=== PATIENT | female | born 1955 | race Caucasian/White ===

== ENCOUNTER 2016-06-22 11:04 | Day surgery (SDC) | payer BC, MEDICAID, MEDICARE, OTHER ==
[2016-06-22] MEDS ORDERED: HYDROmorphone 1 MG/ML Syringe IM ONE (12:24)
--- NOTE | 2016-06-22 12:27 | EDM.PDOC ---
ED HPI Trauma - General Chief Complaint: Upper Extremity Injury/Pain Stated Complaint: BROKE WRIST Time Seen by Provider: 06/22/16 12:21 Source: Reports: Patient, RN notes reviewed History Limitations: Reports: No limitations - History of Present Illness INITIAL COMMENTS - FREE TEXT/NARRATIVE: 60-year-old female fall on outstretched hand left outside today has deformity in excruciating pain Allergies/ADRs: Allergies peanut Allergy (Verified 06/22/16 12:03) Other Penicillins Allergy (Verified 06/22/16 12:03) Difficulty Breathing Home Medications: Ambulatory Orders Celecoxib [CeleBREX] 200 mg PO BID 07/22/15 [Confirmed 06/22/16] Docusate Sodium [Colace] 200 mg PO BID 07/22/15 [Confirmed 06/22/16] Estradiol [Climara] 1 applic TOP WEEKLY 07/22/15 [Confirmed 06/22/16] Levothyroxine Sodium 50 mcg PO DAILY 07/22/15 [Confirmed 06/22/16] Minocycline [Minocin] 100 mg TOP ASDIRECTED PRN 07/22/15 [Confirmed 06/22/16] Omeprazole [Prilosec] 20 mg PO DAILY 07/22/15 [Confirmed 06/22/16] Sennosides [Senna] 2 tab PO BID 07/22/15 [Confirmed 06/22/16] fentaNYL [Fentanyl] 25 mcg TOP ASDIRECTED 07/22/15 [Confirmed 06/22/16] Betamethasone Dipropionate [Diprosone 0.05% Lotion] 1 applic TOP BID PRN [Confirmed 06/22/16] Cholecalciferol (Vitamin D3) [Vitamin D3] 1,000 units PO DAILY 02/02/16 [ Confirmed 06/22/16] Clindamycin HCl [Cleocin] 600 mg PO ASDIRECTED PRN 02/02/16 [Confirmed 06/22/16] Clobetasol [Clobetasol Propionate 0.05%] 1 applic TOP BID 02/02/16 [Confirmed ] Cyanocobalamin (Vitamin B-12) [Vitamin B-12] 1 ml IM ASDIRECTED 02/02/16 [ Confirmed 06/22/16] Cyanocobalamin (Vitamin B-12) [Vitamin B-12] 1,000 mcg SL BID 02/02/16 [ Confirmed 06/22/16] Cyclobenzaprine [Flexeril] 10 mg PO TID PRN 02/02/16 [Confirmed 06/22/16] Fluticasone Propionate [Flonase Allergy Relief] 2 spray NS DAILY PRN 02/02/16 [ Confirmed 06/22/16] Folic Acid 1 mg PO ASDIRECTED 02/02/16 [Confirmed 06/22/16] Hydroquinone 1 applic TOP BID 02/02/16 [Confirmed 06/22/16] Hyoscyamine [Hyomax-SL] 0.125 mg SL Q4H PRN 02/02/16 [Confirmed 06/22/16] Iron,Carbonyl/Ascorbic Acid [Vitron-C Tablet] 1 tab PO DAILY 02/02/16 [ Confirmed 06/22/16] Magnesium Hydroxide [Milk of Magnesia] 400 mg PO DAILY PRN 02/02/16 [Confirmed 06/22/16] Methotrexate 5 mg PO ASDIRECTED 02/02/16 [Confirmed 06/22/16] Multivitamins with Iron [Chewable-Pascual with Iron] 1 tab PO DAILY 02/02/16 [ Confirmed 06/22/16] PARoxetine [Paxil] 10 mg PO DAILY 02/02/16 [Confirmed 06/22/16] Polyethylene Glycol 3350 [MiraLAX] 17 gm PO DAILY PRN 02/02/16 [Confirmed ] Polymyxin B Sulf/Trimethoprim [Polytrim Eye Drops] 1 - 2 drop OP Q4H 02/02/16 [ Confirmed 06/22/16] Ranitidine [Zantac] 150 mg PO DAILY PRN 02/02/16 [Confirmed 06/22/16] Zolpidem Tartrate [Ambien] 5 mg PO BEDTIME PRN 02/02/16 [Confirmed 06/22/16] Past Medical History HEENT History: Reports: Allergic rhinitis, Impaired vision, Sinusitis Respiratory History: Reports: Bronchitis, recurrent Gastrointestinal History: Reports: Bowel obstruction, Chronic constipation, GERD CLASSIFIER History: Reports: Dysfunctional uterine bleeding, , Spontaneous Musculoskeletal History: Reports: Arthritis, Fracture, Fibromyalgia, Osteoarthritis Psychiatric History: Reports: Anxiety, Depression, Panic attack Endocrine/Metabolic History: Reports: Hypothyroidism Hematologic History: Reports: B12 deficiency Dermatologic History: Reports: Psoriasis - Infectious Disease History Infectious Disease History: Reports: Chicken pox, Measles, Mumps - Past Surgical History HEENT Surgical History: Reports: Eye surgery, Oral surgery, Tonsillectomy Other HEENT Surgeries/Procedures: 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 Cardiovascular Surgical History: Reports: None Respiratory Surgical History: Reports: None GI Surgical History: Reports: Appendectomy, Bariatric procedure, Colonoscopy, Hernia, abdominal, Hernia repair/other Female Surgical History: Reports: Breast biopsy, section, D&C, Hysterectomy, Salpingo-oophorectomy Endocrine Surgical History: Reports: None Musculoskeletal Surgical History: Reports: Arthroscopic knee, Carpal tunnel, Shoulder replacement, Other (see below) Other Musculoskeletal Surgeries/Procedures:: bilat foot surgery Dermatological Surgical History: Reports: None Social & Family History - Family History HEENT: Reports: Allergic rhinitis, Cataract, Glaucoma, Hearing impairment, Impaired vision, Macular degeneration Cardiac: Reports: Heart failure, Hypertension, [place] Respiratory: Reports: None GI: Reports: GERD, Hiatal hernia : Reports: Other (see below) Other Family History: urinary incontinence OBGYN: Reports: None Musculoskeletal: Reports: Arthritis, Osteoarthritis, RA Neurological: Reports: CVA Psychiatric: Reports: None Endocrine/Metabolic: Reports: None Hematologic: Reports: None Immunologic: Reports: None Dermatologic: Reports: None Oncologic: Reports: None - Tobacco Use Smoking Status *Q: Never Smoker Years of Tobacco use: 13 Packs/Tins Daily: 1 Used Tobacco, but Quit: Yes Month Tobacco Last Used: 02/1988 Second Hand Smoke Exposure: No - Caffeine Use Caffeine Use: Reports: Coffee, Tea - Alcohol Use Days Per Week of Alcohol Use: 0 Number of Drinks Per Day: 2 Total Drinks Per Week: 0 - Recreational Drug Use Recreational Drug Use: No Review of Systems - Review of Systems Review Of Systems: See Below Constitutional: Reports: no symptoms Respiratory: Reports: no symptoms Cardiovascular: Reports: no symptoms Musculoskeletal: Reports: joint pain (left wrist) Trauma Exam - Physical Exam Exam: See Below Text/Narrative:: examination left wrist does have deformity which is appreciated she is exquisitely tender to the touch over the left wrist she has full range of motion of all digits radial pulses difficult to appreciate secondary to edema Course - Vital Signs Last Recorded V/S: Last Vital Signs Temp 98.1 F 06/22/16 11:55 Pulse 83 06/22/16 11:55 Resp 18 02/28/17 11:55 BP 162/65 H 06/22/16 11:55 Pulse Ox 95 06/22/16 11:55 - Orders/Labs/Meds Orders: Active Orders 24 hr Category Date Time Status EKG Documentation Completion [RC] ASDIRECTED Care 06/22/16 12:32 Inactive UA W/O MICROSCOPIC [URIN] Stat Lab 06/22/16 12:33 Uncollected EKG 12 Lead [EK] Routine Ther 06/22/16 12:32 Stop Req Labs: Laboratory Tests 06/22/16 06/22/16 Range/Units 12:50 12:50 WBC 6.0 (4.5-11.0) K/uL RBC 4.30 (3.30-5.50) M/uL Hgb 13.9 (12.0-15.0) g/dL Hct 42.3 (36.0-48.0) % MCV 98 (80-98) fL MCH 32 H (27-31) pg MCHC 33 (32-36) % Plt Count 181 (150-400) K/uL Sodium 140 (140-148) mmol/L Potassium 3.8 (3.6-5.2) mmol/L Chloride 104 (100-108) mmol/L Carbon Dioxide 25 (21-32) mmol/L Anion Gap 10.6 (5.0-14.0) mmol/L BUN 10 (7-18) mg/dL Creatinine 0.7 (0.6-1.0) mg/dL Est Cr Clr Drug Dosing 80.82 mL/min Estimated GFR (MDRD) > 60 (>60) Glucose 110 H (74-106) mg/dL Calcium 8.4 L (8.5-10.1) mg/dL Meds: Medications Discontinued Medications Generic Name Dose Route Start Last Admin Trade Name Freq PRN Reason Stop Dose Admin Hydromorphone HCl 1 mg 06/22/16 12:24 06/22/16 12:29 Dilaudid IM 06/22/16 12:25 1 mg ONETIME ONE Administration Departure - Departure Time of Disposition: 13:17 Disposition: Admitted As Inpatient 64 Condition: good Clinical Impression: Radius distal fracture Qualifiers: Encounter type: initial encounter Fracture type: closed Fracture morphology: other fracture Laterality: left Qualified Code(s): S52.592A - Other fractures of lower end of left radius, initial encounter for closed fracture Fracture of styloid process of left ulna Qualifiers: Encounter type: initial encounter Fracture type: closed Fracture alignment: displaced Qualified Code(s): S52.612A - Displaced fracture of left ulna styloid process, initial encounter for closed fracture Forms: ED Department Discharge - Assessment/Plan Plan: Assessment Acuity = acute Site and laterality = distal radius fracture left closed, distal ulnar styloid fracture left closed Etiology = secondary to fall on outstretched hand Manifestations = pain Location of injury = home Lab values = x-ray describes a fracture above Plan consult with orthopedics they evaluated the patient in the emergency department plan is open reduction internal fixation . This note was dictated using [employer] voice recognition software please call with any questions.
--- NOTE | 2016-06-22 12:50 | CR ---
Wrist Comp Min 3V Lt HISTORY: Fall COMPARISON: None FINDINGS: Moderately compacted fracture of the radial metaphysis with mild ventral angulation. Ulnar styloid fracture. The fracture involves the radiocarpal joint at the more lateral aspect of the rad ius. Diffuse bone demineralization. Carpal bones appear intact.
--- NOTE | 2016-06-22 12:51 | CR ---
Chest 2V HISTORY: Fall COMPARISON: 11/20/2007 FINDINGS: Cardiac size and pulmonary vessels normal. Lungs are clear. Old right-sided rib fracture. No effusion. Impression: No acute pulmonary disease.
[2016-06-22] MEDS ORDERED: Lactated Ringers 1,000 ML IV SCH (14:00)
[2016-06-22] MEDS ORDERED: Neostigmine Methylsulfate 1 MG/ML 5 ML Syringe ONE (15:53)
[2016-06-22] MEDS ORDERED: Propofol 200 MG/20 ML SDV ONE (15:53)
[2016-06-22] MEDS ORDERED: Rocuronium 50 MG/5 ML Vial ONE (15:53)
[2016-06-22] MEDS ORDERED: Dexamethasone 4 MG/ML SDV ONE (15:53)
[2016-06-22] MEDS ORDERED: Ondansetron 4 MG/2 ML SDV ONE (15:53)
[2016-06-22] MEDS ORDERED: fentaNYL 250 MCG/5 ML SDV ONE ×3 (15:53→17:01)
[2016-06-22] MEDS ORDERED: Bupivacaine 0.5%/EPINEPHrine 1:200,000 50 ML MDV INJECT ONE (17:14)
[2016-06-22] MEDS ORDERED: traMADol 50 MG Tab PO PRN (17:31)
[2016-06-22] MEDS ORDERED: Bisacodyl 5 MG Tab PO PRN (17:31)
[2016-06-22] MEDS ORDERED: Naloxone 0.4 MG/ML SDV IVPUSH PRN (17:31)
[2016-06-22] MEDS ORDERED: Zolpidem 5 MG Tab PO PRN (17:31)
[2016-06-22] MEDS ORDERED: diphenhydrAMINE 50 MG/ML SDV IVPUSH PRN (17:31)
[2016-06-22] MEDS ORDERED: Ketorolac 30 MG/ML SDV IVPUSH PRN (17:31)
[2016-06-22] MEDS ORDERED: Ondansetron 4 MG/2 ML SDV IVPUSH PRN (17:31)
[2016-06-22] MEDS ORDERED: Aluminum Hydroxide/Magnesium Hydroxide/Simethicone Susp 30 ML Cup PO PRN (17:31)
[2016-06-22] MEDS ORDERED: Morphine 2 MG/ML Syringe IVPUSH PRN (17:31)
[2016-06-22] MEDS ORDERED: Magnesium Hydroxide 400 MG/5 ML Susp 30 ML Cup PO PRN (17:31)
[2016-06-22] MEDS: Acetaminophen/oxyCODONE 325-5 MG Tab PO PRN (21:36)
[2016-06-22] MEDS ORDERED: Sennosides 8.6 MG Tab ONE (21:47)
[2016-06-22] MEDS: Docusate Sodium 100 MG Cap PO PRN (21:48)
[2016-06-22] MEDS: Sennosides 8.6 MG Tab PO PRN (21:48)
--- NOTE | 2016-06-23 00:32 | OR ---
DATE OF PROCEDURE: 06/22/2016 PREOPERATIVE DIAGNOSIS: Left distal radius fracture, closed. POSTOPERATIVE DIAGNOSIS: Left distal radius fracture, closed. PROCEDURE: Open reduction internal fixation, left distal radius. FURNACE REPAIR MECHANIC: Nakita Turner NP. ANESTHESIA: Laryngeal mask airway general anesthesia. FLUID: Lactated Ringer solution. ESTIMATED BLOOD LOSS: 50 mL. COMPLICATIONS: None. SPECIMEN: None. DISCHARGE DISPOSITION: Stable to PACU. INSTRUMENTATION: [employer] set. INDICATION FOR THE PROCEDURE: The patient came to the emergency department late this morning after falling while going up the steps in her house. She was found to have a left distal radius fracture. After plain films have been taken, this risks and benefits of the procedure were explained to the patient. Informed consent was obtained. Preoperative imaging confirmed the above-mentioned diagnosis. DETAILS OF PROCEDURE: The patient was seen preoperatively by myself and the anesthesia staff in the preoperative holding area where the operative site was marked. She was brought to the operative suite by the anesthesia staff where general anesthesia was administered. A well-padded tourniquet was placed on the left upper extremity. Left upper extremity was then prepped and draped in a sterile manner. Time-out was called identifying the correct patient, correct procedure, the correct site, and antibiotics were begun with appropriate period of time. The left upper extremity was then exsanguinated, tourniquet was raised to 250 mmHg for 32 minutes and let down and was taken down prior to closure. The wrist was reduced and confirmed on fluoroscopy. An incision was made from the carpus proximally approximately 10 cm along the distal radius and carried down over the flexor carpi radialis tendon. The tendon was retracted laterally and then the incision went through the deep fascia of the flexor carpi radialis. A Weitlaner retractor was used for traction, the distal radius was exposed. Using a [place] as well as some irrigation of the fracture site and an elevator, I then applied a narrow plate and adjusted this few times using fluoroscopy. The fluoroscopy unit happened to be was sterilely draped. Once this was in good position, I placed the styloid wire confirming good position. I then drilled another hole in the proximal large hole of the plate and inserted the screw to hold it in position. I then drilled through the locking guides and then placed partially threaded screws. For the styloid screw, I placed a smooth pin. I then drilled my proximal most hole and then placed a screw. I then confirmed good reduction on AP and lateral radiographs. I then let down the tourniquet. We copiously irrigated with saline. There was extensive bleeding subcutaneously. I took a great deal of time to cauterize the small bleeders. No major vessel had been violated. I then put in multiple 2-0 Vicryl interrupted sutures, followed by 3-0 nylon horizontal mattress sutures. A sterile dressing was then placed as well as a volar splint. The patient was allowed to awaken from general anesthesia and taken to PACU in stable condition. Jose Braga DO /[id number]
[2016-06-23] MEDS: Acetaminophen/oxyCODONE 325-5 MG Tab PO PRN ×2 (05:13→10:28)
[2016-06-23] MEDS ORDERED: Aspirin 325 MG Tab.EC PO SCH (09:00)
[2016-06-23] MEDS ORDERED: Sodium Chloride 0.9% 10 ML Syringe FLUSH SCH (09:00)
[2016-06-23] MEDS: Docusate Sodium 100 MG Cap PO PRN (09:42)
[2016-06-23] MEDS: Sennosides 8.6 MG Tab PO PRN (09:43)
--- NOTE | 2016-06-23 09:47 | PCM.DCSUM1 ---
Discharge Summary - Hospital Course Free Text/Narrative:: Kelin is a 60 year old female who had a distal radius repair. She is slightly dizzy but otherwise is doing well. Her pain is under control. She states that she lives by herself and PT is working with her. - Discharge Data Discharge Date: 06/23/16 Discharge Disposition: Home, Self-Care 01 Condition: Stable - Patient Summary/Data Operative Procedure(s) Performed: ORIF distal radius Consults: Consultations 06/22/16 17:35 Consult to Physician [CONS] Routine Consulting Provider: Mario Castro Call Completed to Consulting Physician: Yes - Patient Instructions Diet: Usual Diet as Tolerated Activity: Apply Ice, As Tolerated, Cough & Deep Breathe, Elevate Extremity Showering/Bathing: May Shower Wound/Incision Care: Keep Operative Site/Wound Site Clean and Dry Notify Provider of: Fever, Increased Pain, Swelling and Redness, Drainage - Discharge Plan Home Medications: Home Meds Celecoxib [CeleBREX] 200 mg PO BID 07/22/15 [History] Docusate Sodium [Colace] 200 mg PO BID 07/22/15 [History] Estradiol [Climara] 1 applic TOP WEEKLY 07/22/15 [History] Levothyroxine Sodium 50 mcg PO DAILY 07/22/15 [History] Minocycline [Minocin] 100 mg TOP ASDIRECTED PRN 07/22/15 [History] Omeprazole [Prilosec] 20 mg PO DAILY 07/22/15 [History] Sennosides [Senna] 2 tab PO BID 07/22/15 [History] fentaNYL [Fentanyl] 25 mcg TOP ASDIRECTED 07/22/15 [History] Betamethasone Dipropionate [Diprosone 0.05% Lotion] 1 applic TOP BID PRN [History] Cholecalciferol (Vitamin D3) [Vitamin D3] 1,000 units PO DAILY 02/02/16 [History ] Clindamycin HCl [Cleocin] 600 mg PO ASDIRECTED PRN 02/02/16 [History] Clobetasol [Clobetasol Propionate 0.05%] 1 applic TOP BID 02/02/16 [History] Cyanocobalamin (Vitamin B-12) [Vitamin B-12] 1 ml IM ASDIRECTED 02/02/16 [ History] Cyanocobalamin (Vitamin B-12) [Vitamin B-12] 1,000 mcg SL BID 02/02/16 [History] Cyclobenzaprine [Flexeril] 10 mg PO TID PRN 02/02/16 [History] Fluticasone Propionate [Flonase Allergy Relief] 2 spray NS DAILY PRN 02/02/16 [ History] Folic Acid 1 mg PO ASDIRECTED 02/02/16 [History] Hydroquinone 1 applic TOP BID 02/02/16 [History] Hyoscyamine [Hyomax-SL] 0.125 mg SL Q4H PRN 02/02/16 [History] Iron,Carbonyl/Ascorbic Acid [Vitron-C Tablet] 1 tab PO DAILY 02/02/16 [History] Magnesium Hydroxide [Milk of Magnesia] 400 mg PO DAILY PRN 02/02/16 [History] Methotrexate 5 mg PO ASDIRECTED PRN 02/02/16 [History] Multivitamins with Iron [Chewable-Pascual with Iron] 1 tab PO DAILY 02/02/16 [ History] PARoxetine [Paxil] 10 mg PO DAILY PRN 02/02/16 [History] Polyethylene Glycol 3350 [MiraLAX] 17 gm PO DAILY PRN 02/02/16 [History] Polymyxin B Sulf/Trimethoprim [Polytrim Eye Drops] 1 - 2 drop OP Q4H 02/02/16 [ History] Ranitidine [Zantac] 150 mg PO DAILY PRN 02/02/16 [History] Zolpidem Tartrate [Ambien] 5 mg PO BEDTIME PRN 02/02/16 [History] Forms: ED Department Discharge Referrals: Lan Mejias MD [Primary Care Provider] - Jose Braga DO [Physician] - (2 weeks recheck with ortho. ) - Discharge Summary/Plan Comment Discharge Summary/Plan Comment: At this time we will discharge her. She notes that her ride will not be available till 4 pm. We will recommend that she continue on her pain medication as prescribed before. She will continue with her stool softeners. - General Info Admission Dx/Problem (Free Text: Kelin is a 60 year old female patient who is POD 1 from a ORIF of the distal radius. She is doing well. She notes some dizziness but is otherwise well. She notes that her pain is controlled. Functional Status: Reports: pain controlled, tolerating diet, ambulating, urinating - Review of Systems General: Reports: no symptoms Musculoskeletal: Reports: joint pain Skin: Reports: no symptoms Neurological: Reports: no symptoms Psychiatric: Reports: no symptoms - Patient Data Vitals - Most Recent: Last Vital Signs Temp 36.5 C 06/23/16 08:28 Pulse 103 H 06/23/16 08:28 Resp 16 06/23/16 08:28 BP 139/86 06/23/16 08:28 Pulse Ox 95 06/23/16 08:28 Weight - Most Recent: 176 lb 2.389 oz I&O - Last 24 hours: Intake & Output 06/22/16 06/23/16 06/23/16 22:59 06:59 14:59 Intake Total 850 767 600 Balance 850 767 600 Lab Results - Last 24 hrs: Laboratory Results - last 24 hr 06/23/16 06/23/16 Range/Units 05:40 05:40 WBC 6.5 (4.5-11.0) K/uL RBC 3.68 (3.30-5.50) M/uL Hgb 12.0 (12.0-15.0) g/dL Hct 36.3 (36.0-48.0) % MCV 99 H (80-98) fL MCH 33 H (27-31) pg MCHC 33 (32-36) % Plt Count 168 (150-400) K/uL Neut % (Auto) 71 H (36-66) % Lymph % (Auto) 19 L (24-44) % Trigg % (Auto) 9 H (2-6) % Eos % (Auto) 1 L (2-4) % Baso % (Auto) 0 (0-1) % Sodium 139 L (140-148) mmol/L Potassium 3.9 (3.6-5.2) mmol/L Chloride 105 (100-108) mmol/L Carbon Dioxide 27 (21-32) mmol/L Anion Gap 10.9 (5.0-14.0) mmol/L BUN 10 (7-18) mg/dL Creatinine 0.5 L (0.6-1.0) mg/dL Est Cr Clr Drug Dosing 113.15 mL/min Estimated GFR (MDRD) > 60 (>60) Glucose 91 (74-106) mg/dL Calcium 7.9 L (8.5-10.1) mg/dL Total Bilirubin 0.6 (0.2-1.0) mg/dL AST 17 (15-37) U/L ALT 20 (12-78) U/L Alkaline Phosphatase 54 (46-116) U/L Total Protein 5.9 L (6.4-8.2) g/dL Albumin 3.1 L (3.4-5.0) g/dL Globulin 2.8 (2.3-3.5) g/dL Albumin/Globulin Ratio 1.1 L (1.2-2.2) Med Orders - Current: Current Medications Al Hydroxide/Mg Hydroxide (Mag-Al Plus) 30 ml PO Q4H PRN PRN Reason: Constipation Aspirin (Ecotrin) 325 mg PO BID LORENZA Bisacodyl (Dulcolax) 10 mg PO DAILY PRN PRN Reason: Constipation Diazepam (Valium) 5 mg IVPUSH Q6H PRN PRN Reason: Spasms Diphenhydramine HCl (Benadryl) 25 mg IVPUSH Q4H PRN PRN Reason: Itching Docusate Sodium (Colace) 100 mg PO BID PRN PRN Reason: Constipation Last Admin: 06/22/16 21:48 Dose: 100 mg Lactated Ringer's (Ringers, Lactated) 1,000 mls @ 0 mls/hr IV ASDIRECTED [facility] PRN Reason: KVO Ketorolac Tromethamine (Toradol) 30 mg IVPUSH Q8H PRN PRN Reason: Pain Stop: 06/27/16 17:31 Last Admin: 06/22/16 19:04 Dose: 30 mg Magnesium Hydroxide (Milk Of Magnesia) 30 ml PO BID PRN PRN Reason: Constipation Last Admin: 06/22/16 21:36 Dose: 30 ml Morphine Sulfate (Morphine) 2 mg IVPUSH Q2H PRN PRN Reason: Pain Naloxone HCl (Narcan) 0.1 mg IVPUSH ASDIRECTED PRN PRN Reason: Oversedation Stop: 06/23/16 17:32 Ondansetron HCl (Zofran) 8 mg IVPUSH Q4H PRN PRN Reason: Nausea/Vomiting Oxycodone/Acetaminophen (Percocet 325-5 Mg) 2 tab PO Q4H PRN PRN Reason: Pain Last Admin: 06/23/16 05:13 Dose: 2 tab Senna (Senna) 8.6 mg PO BID PRN PRN Reason: Constipation Last Admin: 06/22/16 21:48 Dose: 8.6 mg Sodium Chloride (Saline Flush) 10 ml FLUSH DAILY LORENZA Tramadol HCl (Ultram) 100 mg PO Q6H PRN PRN Reason: Pain Last Admin: 06/23/16 01:11 Dose: 100 mg Zolpidem Tartrate (Ambien) 5 mg PO BEDTIME PRN PRN Reason: Sleep Discontinued Medications Bupivacaine HCl/Epinephrine Bitart (Marcaine 0.5%/Epinephrine 1:200,000) 10 ml INJECT .STK-MED ONE Stop: 06/22/16 17:15 Last Admin: 06/22/16 17:14 Dose: 10 ml Dexamethasone (Dexamethasone) Confirm Administered Dose 4 mg .ROUTE .STK-MED ONE Stop: 06/22/16 15:54 Fentanyl (Sublimaze) Confirm Administered Dose 250 mcg .ROUTE .STK-MED ONE Stop: 06/22/16 15:54 Fentanyl (Sublimaze) Confirm Administered Dose 250 mcg .ROUTE .STK-MED ONE Stop: 06/22/16 16:20 Fentanyl (Sublimaze) Confirm Administered Dose 250 mcg .ROUTE .STK-MED ONE Stop: 06/22/16 17:02 Glycopyrrolate () Confirm Administered Dose 1 mg .ROUTE .STK-MED ONE Stop: 06/22/16 15:54 Hydromorphone HCl (Dilaudid) 1 mg IM ONETIME ONE Stop: 06/22/16 12:25 Last Admin: 06/22/16 12:29 Dose: 1 mg Clindamycin Phosphate 600 mg/ (Sodium Chloride) 54 mls @ 100 mls/hr IV ONETIME ONE Stop: 06/22/16 16:02 Last Admin: 06/22/16 14:34 Dose: 100 mls/hr Neostigmine Methylsulfate (Neostigmine) Confirm Administered Dose 5 mg .ROUTE .STK-MED ONE Stop: 06/22/16 15:54 Ondansetron HCl (Zofran) Confirm Administered Dose 4 mg .ROUTE .STK-MED ONE Stop: 06/22/16 15:54 Propofol (Diprivan 20 Ml) Confirm Administered Dose 200 mg .ROUTE .STK-MED ONE Stop: 06/22/16 15:54 Rocuronium [place] (Zemuron) Confirm Administered Dose 50 mg .ROUTE .STK-MED ONE Stop: 06/22/16 15:54 Senna (Senna) Confirm Administered Dose 8.6 mg .ROUTE .STK-MED ONE Stop: 06/22/16 21:48 Last Admin: 06/22/16 23:17 Dose: Not Given - Exam General: Reports: alert, oriented Neck: Reports: supple Extremities: Reports: no edema Skin: Reports: warm, dry, intact Wound/Incisions: Reports: healing well, dressing dry and intact, no drainage, erythema Neurological: Reports: no new focal deficit Psy/Mental Status: Reports: alert, normal affect *Q Meaningful Use (DIS) - VTE *Q VTE Criteria *Q: - Stroke *Q Stroke Criteria *Q: - AMI *Q AMI Criteria *Q:
[2016-06-23] MEDS ORDERED: fentaNYL 25 MCG/HR Transdermal Patch TOP SCH (11:00)
[2016-06-23] MEDS ORDERED: Celecoxib 200 MG Cap PO SCH (11:00)
[2016-06-23] MEDS ORDERED: Celecoxib 100 MG Cap PO SCH ×2 (11:00)
[2016-06-23] MEDS ORDERED: Levothyroxine 50 MCG Tab PO SCH (11:00)
[2016-06-23 11:32] VITALS: BP 133/82
== END 2016-06-23 17:15 | disposition home or self-care (01) ==
LOC: JP.ED 11:04 → JP.SDS 14:26 → JP.MS 17:31 → UNDOADMOB 17:31 → JP.MS 17:31 → UNDODISOB 06-23 17:15 → JP.SDS 06-23 17:15
PROVIDERS: ATTEND Orthopaedic Surgery
DX: S52.502A Unspecified fracture of the lower end of left radius, initial encounter for closed fracture (principal); K21.9 Gastro-esophageal reflux disease without esophagitis; F41.8 Other specified anxiety disorders; E03.9 Hypothyroidism, unspecified; E53.8 Deficiency of other specified B group vitamins; W10.8XXA Fall (on) (from) other stairs and steps, initial encounter; Y92.009 Unspecified place in unspecified non-institutional (private) residence as the place of occurrence of the external cause; Z88.0 Allergy status to penicillin; Z91.010 Allergy to peanuts; Z79.899 Other long term (current) drug therapy; Z90.49 Acquired absence of other specified parts of digestive tract; Z98.84 Bariatric surgery status; Z90.710 Acquired absence of both cervix and uterus; Z98.890 Other specified postprocedural states
CPT/HCPCS: 25607; 36415; 71020; 73110; 76001; 80048; 80053; 81003; 85025; 85027; 97162; 97165; 97530; 97535; A9270; J1100; J1170; J1885; J2405; J2704; J3010; J7050; 93005; C1713; S0077

== ENCOUNTER 2018-06-19 11:45 | Day surgery (SDC) | payer MEDICARE, OTHER ==
--- NOTE | 2018-06-19 12:33 | EDM.PDOC ---
ED HPI GENERAL MEDICAL PROBLEM - General Chief Complaint: ENT Problem Stated Complaint: SOMETHING STUCK IN THROAT Time Seen by Provider: 06/19/18 12:20 Source of Information: Reports: Patient History Limitations: Reports: No Limitations - History of Present Illness INITIAL COMMENTS - FREE TEXT/NARRATIVE: Patient got some omellete from breakfast this morning impacted in her distal esophagus. This has happened to her in the past several times. She's been unable to swallow any water or saliva for the past 6 hours. She has a steady pressure in the epigastric area. No shortness of breath or cough. Onset: Sudden Duration: Hour(s): (6 hours ago) Associated Symptoms: Reports: No Other Symptoms - Related Data Allergies Allergy/AdvReac Type Severity Reaction Status Date / Time Penicillins Allergy Severe Difficulty Verified 06/19/18 12:04 Breathing peanut Allergy Other Verified 06/19/18 12:04 Home Meds: Home Meds Celecoxib [CeleBREX] 200 mg PO BID 07/22/15 [History] Docusate Sodium [Colace] 200 mg PO BID 07/22/15 [History] Levothyroxine Sodium 50 mcg PO DAILY 07/22/15 [History] Minocycline [Minocin] 100 mg PO BID 07/22/15 [History] Omeprazole [Prilosec] 20 mg PO DAILY 07/22/15 [History] Sennosides [Senna] 2 tab PO BID 07/22/15 [History] fentaNYL [Fentanyl] 25 mcg TOP ASDIRECTED 07/22/15 [History] Cholecalciferol (Vitamin D3) [Vitamin D3] 1,000 units PO DAILY 02/02/16 [History ] Clindamycin HCl [Cleocin] 600 mg PO ASDIRECTED PRN 02/02/16 [History] Clobetasol [Clobetasol Propionate 0.05%] 1 applic TOP BID 02/02/16 [History] Cyanocobalamin (Vitamin B-12) [Vitamin B-12] 1 ml IM ASDIRECTED 02/02/16 [ History] Cyanocobalamin (Vitamin B-12) [Vitamin B-12] 1,000 mcg SL BID 02/02/16 [History] Cyclobenzaprine [Flexeril] 10 mg PO TID PRN 02/02/16 [History] Fluticasone Propionate [Flonase Allergy Relief] 2 spray NS DAILY PRN 02/02/16 [ History] Folic Acid 1 mg PO ASDIRECTED 02/02/16 [History] Hydroquinone 1 applic TOP BID 02/02/16 [History] Iron,Carbonyl/Ascorbic Acid [Vitron-C Tablet] 1 tab PO DAILY 02/02/16 [History] Magnesium Hydroxide [Milk of Magnesia] 5 ml PO DAILY PRN 02/02/16 [History] Methotrexate 5 mg PO ASDIRECTED PRN 02/02/16 [History] Multivitamins with Iron [Chewable-Pascual with Iron] 1 tab PO DAILY 02/02/16 [ History] PARoxetine [Paxil] 10 mg PO DAILY PRN 02/02/16 [History] Polyethylene Glycol 3350 [MiraLAX] 17 gm PO DAILY PRN 02/02/16 [History] Polymyxin B Sulf/Trimethoprim [Polytrim Eye Drops] 1 - 2 drop OP Q4H 02/02/16 [ History] Ranitidine [Zantac] 150 mg PO DAILY PRN 02/02/16 [History] Zolpidem Tartrate [Ambien] 5 mg PO BEDTIME PRN 02/02/16 [History] Alendronate Sodium [Fosamax] 70 mg PO WEEKLY 03/20/18 [History] Betamethasone Dipropionate [Diprolene AF 0.05% Crm] 1 applic TOP BID PRN [History] Enoxaparin Sodium [Lovenox] 30 mg SQ DAILY 03/20/18 [History] Estradiol/Norethindrone Acet [Estradiol-Noreth 1-0.5 MG] 1 tab PO DAILY [History] Gabapentin [Neurontin] 300 mg PO BID 03/20/18 [History] Hyoscyamine Sulfate [Levsin-Sl] 0.125 mg SL Q4H PRN 03/20/18 [History] Losartan Potassium [Cozaar] 50 mg PO DAILY 03/20/18 [History] Mometasone Furoate [Elocon 0.1% Crm] 1 applic TOP BID PRN 03/20/18 [History] hydrOXYzine pamoate [Vistaril] 25 mg PO TID PRN 03/20/18 [History] metroNIDAZOLE [metroNIDAZOLE 0.75% Cream] 1 applic TOP BID 03/20/18 [History] oxyCODONE HCl/Acetaminophen [Percocet 10-325 mg Tablet] 1 each PO Q4H PRN [History] Metoprolol Succinate [Toprol XL 50mg] 1 tab PO DAILY 06/19/18 [History] Ticagrelor [Brilinta] 1 tab PO BID 06/19/18 [History] atorvaSTATin Calcium [Atorvastatin Calcium] 1 tab PO DAILY 06/19/18 [History] Past Medical History HEENT History: Reports: Allergic Rhinitis, Impaired Vision, Sinusitis Cardiovascular History: Reports: Hypertension Respiratory History: Reports: Bronchitis, Recurrent Gastrointestinal History: Reports: Bowel Obstruction, Chronic Constipation, GERD Genitourinary History: Reports: None [employer]USB[employer] History: Reports: Dysfunctional Uterine Bleeding, , Spontaneous Musculoskeletal History: Reports: Arthritis, Fracture, Fibromyalgia, Osteoarthritis Psychiatric History: Reports: Anxiety, Depression, Panic Attack Endocrine/Metabolic History: Reports: Hypothyroidism Hematologic History: Reports: B12 Deficiency Immunologic History: Reports: None Oncologic (Cancer) History: Reports: None Dermatologic History: Reports: Psoriasis - Infectious Disease History Infectious Disease History: Reports: Chicken Pox, Measles, Mumps - Past Surgical History HEENT Surgical History: Reports: Eye Surgery, Oral Surgery, Tonsillectomy Cardiovascular Surgical History: Reports: Coronary Artery Stent GI Surgical History: Reports: Appendectomy, Bariatric Procedure, Colonoscopy, Hernia, Abdominal, Hernia Repair/Other Female Surgical History: Reports: Breast Biopsy, Section, D&C, Hysterectomy, Salpingo-Oophorectomy Musculoskeletal Surgical History: Reports: Arthroscopic Knee, Carpal Tunnel, Shoulder Replacement, Other (See Below) Other Musculoskeletal Surgeries/Procedures:: bilateral feet repair Oncologic Surgical History: Reports: Biopsy of Breast Social & Family History - Family History HEENT: Reports: Allergic Rhinitis, Cataract, Glaucoma, Hearing Impairment, Impaired Vision, Macular Degeneration Cardiac: Reports: Heart Failure, Hypertension, [place] Respiratory: Reports: None GI: Reports: GERD, Hiatal Hernia : Reports: Other (See Below) Other Family History: urinary incontinence OBGYN: Reports: None Musculoskeletal: Reports: Arthritis, Osteoarthritis, RA Neurological: Reports: CVA Psychiatric: Reports: None Endocrine/Metabolic: Reports: None Hematologic: Reports: None Immunologic: Reports: None Dermatologic: Reports: None Oncologic: Reports: None - Tobacco Use Smoking Status *Q: Never Smoker - Caffeine Use Caffeine Use: Reports: Coffee - Alcohol Use Days Per Week of Alcohol Use: 2 Number of Drinks Per Day: 2 Total Drinks Per Week: 4 - Recreational Drug Use Recreational Drug Use: No ED ROS ENT - Review of Systems Review Of Systems: See Below Constitutional: Denies: Fever, Chills Respiratory: Denies: Shortness of Breath, Cough Cardiovascular: Reports: Chest Pain (Some slight substernal and epigastric pressure) GI/Abdominal: Denies: Vomiting Skin: Reports: No Symptoms Neurological: Denies: Headache ED EXAM, ENT - Physical Exam Exam: See Below Exam Limited By: No Limitations General Appearance: Alert, Mild Distress (Looks uncomfortable, holding an emesis bag) Eye Exam: Bilateral Eye: EOMI (No jaundice) Head: Atraumatic Respiratory/Chest: No Respiratory Distress, Lungs Clear Cardiovascular: Regular Rate, Rhythm, Other (Very faint systolic murmur) GI/Abdominal: Soft, Other (Slight discomfort in the upper abdomen) Neurological: Alert, Oriented Psychiatric: Normal Affect, Normal Mood Skin: Warm, Dry Course - Vital Signs Last Recorded V/S: Last Vital Signs Temp 97.1 F 06/19/18 15:32 Pulse 73 06/19/18 16:26 Resp 16 06/19/18 16:26 BP 153/85 H 06/19/18 16:26 Pulse Ox 98 06/19/18 16:26 - Orders/Labs/Meds Meds: Medications Discontinued Medications Generic Name Dose Route Start Last Admin Trade Name Fallon PRN Reason Stop Dose Admin Cyanocobalamin 1,000 mcg 06/19/18 16:00 06/19/18 16:17 Vitamin B12 IM 06/19/18 16:01 1,000 mcg ONETIME ONE Administration Fentanyl Confirm 06/19/18 14:25 Sublimaze Administered 06/19/18 14:26 Dose 100 mcg .ROUTE .STK-MED ONE Sodium Chloride 1,000 mls @ 500 mls/hr 06/19/18 12:45 06/19/18 13:00 Normal Saline IV 500 mls/hr ASDIRECTED LORENZA Administration Multivitamins/Minerals 10 ml/ 1,012 mls @ 500 mls/hr 06/19/18 15:45 06/19/18 16:16 Chromium/Copper/Manganese/ IV 06/19/18 17:46 500 mls/hr Seleni/Zn 1 ml/ Thiamine HCl ONETIME ONE Administration 100 mg/ Lactated Ringer's Midazolam HCl Confirm 06/19/18 14:25 Versed 1 Mg/Ml Administered 06/19/18 14:26 Dose 2 mg .ROUTE .STK-MED ONE Propofol Confirm 06/19/18 14:25 Diprivan 20 Ml Administered 06/19/18 14:26 Dose 200 mg .ROUTE .STK-MED ONE Propofol Confirm 06/19/18 14:49 Diprivan 20 Ml Administered 06/19/18 14:50 Dose 200 mg .ROUTE .STK-MED ONE - Re-Assessments/Exams Free Text/Narrative Re-Assessment/Exam: 06/19/18 12:32 An IV was started and the patient was hydrated with normal saline at 500 mL an hour, Dr. Benitez was consulted and and will help the patient with an EGD and removal of foreign body. 06/19/18 16:46 Procedure was successful removing a large amount of food material in the distal esophagus, patient recovered well. Departure - Departure Time of Disposition: 17:48 Disposition: Home, Self-Care 01 Condition: Good Clinical Impression: Impacted foreign body in esophagus Qualifiers: Encounter type: initial encounter Qualified Code(s): T18.108A - Unspecified foreign body in esophagus causing other injury, initial encounter - Discharge Information Instructions: Swallowed Foreign Body, Adult Referrals: Lan Mejias MD [Primary Care Provider] - Forms: ED Department Discharge Care Plan Goals: Follow step to post-gastric bypass diet for 3 days then begin soft solids as tolerated. Follow-up as needed. Continue your current medications.
[2018-06-19] MEDS ORDERED: Sodium Chloride 0.9% 1,000 ML IV SCH (12:45)
[2018-06-19] MEDS ORDERED: Propofol 200 MG/20 ML SDV ONE ×2 (14:25→14:49)
[2018-06-19] MEDS ORDERED: Midazolam 1 MG/ML 2 ML SDV ONE (14:25)
[2018-06-19] MEDS ORDERED: fentaNYL 100 MCG/2 ML SDV ONE (14:25)
[2018-06-19] MEDS ORDERED: MVI, Adult with Vitamin K 10 ML, Chromium/Copper/Mang/Selen/Zn 1 ML, Thiamine 100 MG in... IV ONE ×4 (15:45)
[2018-06-19] MEDS ORDERED: Cyanocobalamin (Vitamin B12) 1,000 MCG/ML SDV IM ONE (16:00)
--- NOTE | 2018-06-19 16:15 | OR ---
DATE OF PROCEDURE: 06/19/2018 PREOPERATIVE DIAGNOSIS: Obstructing esophageal foreign body. POSTOPERATIVE DIAGNOSIS: Obstructing anastomotic foreign body. PROCEDURE: Esophagogastrojejunoscopy with removal of obstructing anastomotic foreign body. SURGEON: Augusto Benitez MD. ANESTHESIA: IV anesthesia with monitored anesthesia care. INDICATION: This 62-year-old white female had a Anthony-en-Y gastric bypass about 15 years ago. She has had several episodes of food becoming obstructed at her anastomosis. This morning, about 4 o'clock, she was unable to sleep, got up and made an omelet. The omelet became stuck. She is unable to pass it and a request was made for upper endoscopy. I counseled her for this, and she gave her informed consent to proceed. DESCRIPTION OF PROCEDURE: The patient was placed in the left lateral decubitus position. IV anesthesia was administered by the Anesthesia Service. Time-out was held. The flexible video Olympus upper endoscope was passed through her mouth, down her esophagus, where we encountered the obstructing foreign body, which was the omelet, in her gastric remnant. We passed a basket around much of it and removed the scope with the removed bolus recovered. The scope was reintroduced back down to the stomach. We were then able to pass across the anastomosis. We pushed much of the remaining foreign body into the jejunum. The anastomosis was noted to be widely patent. The scope was then removed. She tolerated the procedure well. Augusto Benitez MD /[id number] MTDD
[2018-06-19 16:41] VITALS: BP 153/85
== END 2018-06-19 17:48 | disposition home or self-care (01) ==
LOC: JP.ED 11:45 → JP.SDS 14:30 → JP.ED 17:48
PROVIDERS: ATTEND Surgery
DX: T18.108A Unspecified foreign body in esophagus causing other injury, initial encounter (principal); I10 Essential (primary) hypertension; K21.9 Gastro-esophageal reflux disease without esophagitis; F41.9 Anxiety disorder, unspecified; F32.9 Major depressive disorder, single episode, unspecified; E03.9 Hypothyroidism, unspecified; Z79.899 Other long term (current) drug therapy; Z88.0 Allergy status to penicillin; Z91.010 Allergy to peanuts
CPT/HCPCS: 43247; 96360; 96361; 99283; J2250; J2704; J3010; J3411; J3420; J7030; J7120

== ENCOUNTER 2021-01-28 14:05 | Emergency (ER) | payer MEDICARE, OTHER ==
--- NOTE | 2021-01-28 14:35 | EDM.PDOC ---
ED HPI GENERAL MEDICAL PROBLEM - General Chief Complaint: Neurological Problem Stated Complaint: STROKE? Time Seen by Provider: 01/28/21 14:15 Source of Information: Reports: Patient History Limitations: Reports: No Limitations - History of Present Illness INITIAL COMMENTS - FREE TEXT/NARRATIVE: This is a 65-year-old female who presents with concerns of word finding difficulty. Her last known normal was approximately 11:30 AM. She reports that she was getting in the car and she felt forgetful. She then got to walker where she started to feel anxious and again as if she is having difficulty finding her words, prompting her to return home. She is stopped at the cell phone store before this and was able to pay her bill. She still feels "jumbled in the brain". Notes no slurring of speech. No weakness. No headache or neck pain. No history of prior stroke. No history of A. fib. Not anticoagulated. Otherwise feeling well. - Related Data Allergies Allergy/AdvReac Type Severity Reaction Status Date / Time Penicillins Allergy Severe Difficulty Verified 01/28/21 14:27 Breathing peanut Allergy Other Verified 01/28/21 14:27 Home Meds: Home Meds Celecoxib [CeleBREX] 100 mg PO DAILY 07/22/15 [History] Levothyroxine Sodium 50 mcg PO DAILY 07/22/15 [History] Omeprazole [Prilosec] 20 mg PO DAILY 07/22/15 [History] fentaNYL [Fentanyl] 50 mcg TOP ASDIRECTED 07/22/15 [History] Clobetasol [Clobetasol Propionate 0.05%] 1 applic TOP BID 02/02/16 [History] Cyanocobalamin (Vitamin B-12) [Vitamin B-12] 1 ml IM ASDIRECTED 02/02/16 [History] Fluticasone Propionate [Flonase Allergy Relief] 2 spray NS DAILY PRN 02/02/16 [History] Hydroquinone 1 applic TOP BID 02/02/16 [History] Methotrexate 5 mg PO ASDIRECTED PRN 02/02/16 [History] Multivitamin with Iron [Chewable-Pascual with Iron] 1 tab PO DAILY 02/02/16 [History] Ranitidine [Zantac] 150 mg PO DAILY PRN 02/02/16 [History] clindamycin HCL [Cleocin] 600 mg PO ASDIRECTED PRN 02/02/16 [History] Betamethasone Dipropionate [Diprolene AF 0.05% Crm] 1 applic TOP BID PRN 03/20/18 [History] Estradiol/Norethindrone Acet [Estradiol-Noreth 1-0.5 MG] 1 tab PO DAILY 03/20/18 [History] Gabapentin [Neurontin] 300 mg PO BID 03/20/18 [History] Losartan Potassium [Cozaar] 50 mg PO DAILY 03/20/18 [History] Mometasone Furoate [Elocon 0.1% Crm] 1 applic TOP BID PRN 03/20/18 [History] hydrOXYzine pamoate [Vistaril] 25 mg PO TID PRN 03/20/18 [History] metroNIDAZOLE [metroNIDAZOLE 0.75% Cream] 1 applic TOP BID 03/20/18 [History] Metoprolol Succinate [Toprol XL 50mg] 1 tab PO DAILY 06/19/18 [History] atorvaSTATin Calcium [Atorvastatin Calcium] 1 tab PO BEDTIME 06/19/18 [History] Past Medical History HEENT History: Reports: Allergic Rhinitis, Impaired Vision, Sinusitis Cardiovascular History: Reports: Hypertension Respiratory History: Reports: Bronchitis, Recurrent Gastrointestinal History: Reports: Bowel Obstruction, Chronic Constipation, GERD Genitourinary History: Reports: None [employer]ELOPER History: Reports: Dysfunctional Uterine Bleeding, , Spontaneous Musculoskeletal History: Reports: Arthritis, Fracture, Fibromyalgia, Osteo arthritis Psychiatric History: Reports: Anxiety, Depression, Panic Attack Endocrine/Metabolic History: Reports: Hypothyroidism Hematologic History: Reports: B12 Deficiency Immunologic History: Reports: None Oncologic (Cancer) History: Reports: None Dermatologic History: Reports: Psoriasis - Infectious Disease History Infectious Disease History: Reports: Chicken Pox, Measles, Mumps - Past Surgical History HEENT Surgical History: Reports: Eye Surgery, Oral Surgery, Tonsillectomy Cardiovascular Surgical History: Reports: Coronary Artery Stent GI Surgical History: Reports: Appendectomy, Bariatric Procedure, Colonoscopy, Hernia, Abdominal, Hernia Repair/Other Female Surgical History: Reports: Breast Biopsy, Section, D&C, Hysterectomy, Salpingo-Oophorectomy Musculoskeletal Surgical History: Reports: Arthroscopic Knee, Carpal Tunnel, Shoulder Replacement, Other (See Below) Other Musculoskeletal Surgeries/Procedures:: bilateral feet repair Oncologic Surgical History: Reports: Biopsy of Breast Social & Family History - Family History HEENT: Reports: Allergic Rhinitis, Cataract, Glaucoma, Hearing Impairment, Impaired Vision, Macular Degeneration Cardiac: Reports: Heart Failure, Hypertension, DC Respiratory: Reports: None GI: Reports: GERD, Hiatal Hernia : Reports: Other (See Below) Other Family History: urinary incontinence OBGYN: Reports: None Musculoskeletal: Reports: Arthritis, Osteoarthritis, RA Neurological: Reports: CVA Psychiatric: Reports: None Endocrine/Metabolic: Reports: None Hematologic: Reports: None Immunologic: Reports: None Dermatologic: Reports: None Oncologic: Reports: None - Caffeine Use Caffeine Use: Reports: Coffee ED ROS GENERAL - Review of Systems Review Of Systems: See Below Constitutional: Reports: No Symptoms HEENT: Reports: No Symptoms Respiratory: Reports: No Symptoms Cardiovascular: Reports: No Symptoms Endocrine: Reports: No Symptoms GI/Abdominal: Reports: No Symptoms : Reports: No Symptoms Musculoskeletal: Reports: No Symptoms Skin: Reports: No Symptoms Neurological: Reports: Trouble Speaking Psychiatric: Reports: No Symptoms Hematologic/Lymphatic: Reports: No Symptoms Immunologic: Reports: No Symptoms ED EXAM, NEURO - Physical Exam Exam: See Below Exam Limited By: No Limitations General Appearance: Alert, No Apparent Distress Ears: Normal External Exam Nose: Normal Inspection Throat/Mouth: Normal Inspection Head Exam: Atraumatic, Normocephalic Neck: Normal Inspection Respiratory/Chest: No Respiratory Distress, Lungs Clear Cardiovascular: Regular Rate, Rhythm GI/Abdominal: Soft, Non-Tender Neurological: Alert, Normal Mood/Affect, CN II-XII Intact, Other (Cranial nerves II through XII grossly intact. Speech is fluid. Following commands. No no extremity drift. NIH stroke scale 0) #1 Interpretation Rhythm: NSR EKG Interpretation Comments: Normal sinus rhythm. Rate is 83. Nonspecific T wave flattening, otherwise no ischemic change. Course - Vital Signs Last Recorded V/S: Last Vital Signs Temp 36.3 C 01/28/21 14:17 Pulse 78 01/28/21 16:12 Resp 20 01/28/21 14:17 BP 127/71 01/28/21 16:12 Pulse Ox 96 01/28/21 16:12 - Orders/Labs/Meds Orders: Active Orders 24 hr Category Date Time Status Iopamidol [Isovue-370 (76%)] Med 01/28/21 14:45 Active 100 ml IV . DIRECTED Sodium Chloride 0.9% [Saline Flush] Med 01/28/21 14:38 Active 10 ml FLUSH ONETIME PRN EKG 12 Lead [EK] Routine Ther 01/28/21 14:36 Ordered Medication Orders Iopamidol (Iopamidol 755 Mg/Ml 100 Ml Bottle) 100 ml IV . DIRECTED [facility] Last Admin: 01/28/21 15:21 Dose: 100 ml Documented by: YASRMMELI Sodium Chloride (Sodium Chloride 0.9% 10 Ml Syringe) 10 ml FLUSH ONETIME PRN PRN Reason: PER RADIOLOGY PROTOCOL Last Admin: 01/28/21 15:20 Dose: 10 ml Documented by: CAM Labs: Laboratory Tests 01/28/21 01/28/21 01/28/21 Range/Units 14:40 14:40 14:40 WBC 6.7 (4.5-11.0) K/uL RBC 4.00 (3.30-5.50) M/uL Hgb 12.6 (12.0-15.0) g/dL Hct 39.3 (36.0-48.0) % MCV 98 (80-98) fL MCH 32 H (27-31) pg MCHC 32 (32-36) % Plt Count 166 (150-400) K/uL Sodium 140 (140-148) mmol/L Potassium 3.7 (3.6-5.2) mmol/L Chloride 105 (100-108) mmol/L Carbon Dioxide 22 (21-32) mmol/L Anion Gap 12.8 (5.0-14.0) mmol/L BUN 11 (7-18) mg/dL Creatinine 0.6 (0.6-1.0) mg/dL Est Cr Clr Drug Dosing 75.26 mL/min Estimated GFR (MDRD) > 60 (>60) Glucose 129 H (74-106) mg/dL Calcium 8.4 L (8.5-10.1) mg/dL Total Bilirubin 0.7 (0.2-1.0) mg/dL AST 24 (15-37) U/L ALT 28 (12-78) U/L Alkaline Phosphatase 113 D (46-116) U/L Ammonia < 17 (11-32) umol/L Total Protein 6.5 (6.4-8.2) g/dL Albumin 3.4 (3.4-5.0) g/dL Globulin 3.1 (2.3-3.5) g/dL Albumin/Globulin Ratio 1.1 L (1.2-2.2) Lipase 38 L (73-393) U/L Urine Color (YELLOW) Urine Appearance (CLEAR) Urine pH (5.0-8.0) Ur Specific [place] (1.008-1.030) Urine Protein (NEGATIVE) mg/dL Urine Glucose (UA) (NEGATIVE) mg/dL Urine Ketones (NEGATIVE) mg/dL Urine Occult Blood (NEGATIVE) Urine Nitrite (NEGATIVE) Urine Bilirubin (NEGATIVE) Urine Urobilinogen (0.2-1.0) EU/dL Ur Leukocyte Esterase (NEGATIVE) Urine RBC (0-5) Urine WBC (0-5) Ur Epithelial Cells Amorphous Sediment Urine Bacteria Urine Mucus Urine Opiates Screen (NEGATIVE) Ur Oxycodone Screen (NEGATIVE) Urine Methadone Screen (NEGATIVE) Ur Propoxyphene Screen (NEGATIVE) Ur Barbiturates Screen (NEGATIVE) Ur Tricyclics Screen (NEGATIVE) Ur Phencyclidine Scrn (NEGATIVE) Ur Amphetamine Screen (NEGATIVE) U Methamphetamines Scrn (NEGATIVE) Urine MDMA Screen (NEGATIVE) U Benzodiazepines Scrn (NEGATIVE) U Cocaine Metab Screen (NEGATIVE) U Marijuana (THC) Screen (NEGATIVE) Ethyl Alcohol mg/dL 01/28/21 01/28/21 01/28/21 Range/Units 14:40 14:47 14:47 WBC (4.5-11.0) K/uL RBC (3.30-5.50) M/uL Hgb (12.0-15.0) g/dL Hct (36.0-48.0) % MCV (80-98) fL MCH (27-31) pg MCHC (32-36) % Plt Count (150-400) K/uL Sodium (140-148) mmol/L Potassium (3.6-5.2) mmol/L Chloride (100-108) mmol/L Carbon Dioxide (21-32) mmol/L Anion Gap (5.0-14.0) mmol/L BUN (7-18) mg/dL Creatinine (0.6-1.0) mg/dL Est Cr Clr Drug Dosing mL/min Estimated GFR (MDRD) (>60) Glucose (74-106) mg/dL Calcium (8.5-10.1) mg/dL Total Bilirubin (0.2-1.0) mg/dL AST (15-37) U/L ALT (12-78) U/L Alkaline Phosphatase (46-116) U/L Ammonia (11-32) umol/L Total Protein (6.4-8.2) g/dL Albumin (3.4-5.0) g/dL Globulin (2.3-3.5) g/dL Albumin/Globulin Ratio (1.2-2.2) Lipase (73-393) U/L Urine Color Yellow (YELLOW) Urine Appearance Slightly cloudy A (CLEAR) Urine pH 6.0 (5.0-8.0) Ur Specific [place] >= 1.030 (1.008-1.030) Urine Protein Trace H (NEGATIVE) mg/dL Urine Glucose (UA) Negative (NEGATIVE) mg/dL Urine Ketones Negative (NEGATIVE) mg/dL Urine Occult Blood Negative (NEGATIVE) Urine Nitrite Negative (NEGATIVE) Urine Bilirubin Negative (NEGATIVE) Urine Urobilinogen 0.2 (0.2-1.0) EU/dL Ur Leukocyte Esterase Trace H (NEGATIVE) Urine RBC 0-5 (0-5) Urine WBC 20-30 H (0-5) Ur Epithelial Cells Many Amorphous Sediment Not seen Urine Bacteria Many Urine Mucus Moderate Urine Opiates Screen Negative (NEGATIVE) Ur Oxycodone Screen Negative (NEGATIVE) Urine Methadone Screen Negative (NEGATIVE) Ur Propoxyphene Screen Negative (NEGATIVE) Ur Barbiturates Screen Negative (NEGATIVE) Ur Tricyclics Screen Negative (NEGATIVE) Ur Phencyclidine Scrn Negative (NEGATIVE) Ur Amphetamine Screen Negative (NEGATIVE) U Methamphetamines Scrn Negative (NEGATIVE) Urine MDMA Screen Negative (NEGATIVE) U Benzodiazepines Scrn Negative (NEGATIVE) U Cocaine Metab Screen Negative (NEGATIVE) U Marijuana (THC) Screen Negative (NEGATIVE) Ethyl Alcohol < 3 mg/dL Meds: Medications Generic Name Dose Route Start Last Admin Trade Name Freq PRN Reason Stop Dose Admin Iopamidol 100 ml 01/28/21 14:45 01/28/21 15:21 Iopamidol 755 Mg/Ml 100 Ml Bottle IV 100 ml . DIRECTED LORENZA Administration Sodium Chloride 10 ml 01/28/21 14:38 01/28/21 15:20 Sodium Chloride 0.9% 10 Ml Syringe FLUSH 10 ml ONETIME PRN Administration PER RADIOLOGY PROTOCOL Discontinued Medications Generic Name Dose Route Start Last Admin Trade Name [place]on PRN Reason Stop Dose Admin Sodium Chloride 100 mls @ 3 mls/sec 01/28/21 14:38 01/28/21 15:20 Normal Saline IV 01/28/21 14:39 4 mls/sec ONETIME ONE Administration - Re-Assessments/Exams Free Text/Narrative Re-Assessment/Exam: This is a 65-year-old female who presents with concerns of transient speech difficulty. On examination here she has normal vitals. She is completely neurologically intact. Her symptoms do not seem entirely consistent with an expressive aphasia as she reports some stuttering difficulty with intermittent words. She still feels this way while she is here, but has an otherwise reassuring neurologic exam. With the sudden onset of her language difficulty primary concern for CVA. Screening labs obtained and are unremarkable. EKG shows sinus rhythm without evidence of A. fib. Noncontrast head CT as well as CTA of the head neck were obtained. These are without acute process. On reevaluation the patient is asymptomatic. Discussed with her, although low suspicion, have to remain somewhat concerned for stroke given her symptoms. We discussed the limitations of head CT in detecting new small ischemic strokes. Her preference is to follow-up with her primary doctor and discuss MR imaging and further work-up at this time. She already has an appointment scheduled tomorrow to discuss her fentanyl prescription. She was discharged with return precautions. 01/28/21 16:35 Departure - Departure Time of Disposition: 16:38 Disposition: Home, Self-Care 01 Clinical Impression: Difficulty with speech - Discharge Information *PRESCRIPTION DRUG MONITORING PROGRAM REVIEWED*: No *COPY OF PRESCRIPTION DRUG MONITORING REPORT IN PATIENT SHARRON: No Referrals: PCP,None [Primary Care Provider] - Forms: ED Department Discharge Additional Instructions: As discussed, your work-up today in the ER was reassuring. Please discuss with your primary care doctor tomorrow that he wanted you more work-up into possible stroke. If your symptoms recur and persist we are always happy to reevaluate you in the emergency room. Thank you for trusting us to care for you today. Sepsis Event Note (ED) - Focused Exam Vital Signs: Vital Signs Temp Pulse Resp BP Pulse Ox 01/28/21 16:12 78 127/71 96 01/28/21 15:30 84 151/81 H 96 01/28/21 14:17 36.3 C 95 20 183/95 H 99 - My Orders Last 24 Hours: My Active Orders 01/28/21 14:36 EKG 12 Lead [EK] Routine 01/28/21 14:38 Sodium Chloride 0.9% [Saline Flush] 10 ml FLUSH ONETIME PRN 01/28/21 14:45 Iopamidol [Isovue-370 (76%)] 100 ml IV . DIRECTED - Assessment/Plan Last 24 Hours: My Active Orders 01/28/21 14:36 EKG 12 Lead [EK] Routine 01/28/21 14:38 Sodium Chloride 0.9% [Saline Flush] 10 ml FLUSH ONETIME PRN 01/28/21 14:45 Iopamidol [Isovue-370 (76%)] 100 ml IV . DIRECTED
[2021-01-28] MEDS ORDERED: Sodium Chloride 0.9% 100 ML IV ONE (14:38)
[2021-01-28] MEDS ORDERED: Sodium Chloride 0.9% 10 ML Syringe FLUSH PRN (14:38)
[2021-01-28] MEDS ORDERED: Iopamidol 755 Mg/ML 100 ML Bottle IV SCH (14:45)
--- NOTE | 2021-01-28 15:50 | CRLCT ---
For Patients: As a result of the Century Cures Act, medical imaging exams and procedure reports are released immediately into your electronic medical record. You may view this report before your referring provider. If you have questions, please contact your health care provider. Indication: Word-finding difficulty Technique: Volumetric multidetector CT images of the head were obtained without the administration of low osmolar intravenous contrast. Comparison: None available Findings: There is no intra-axial or extra-axial fluid collection. There is no mass effect or midline shift. There is age-related cortical atrophy with mild sulcal widening and ex vacuo dilatation of the lateral ventricles. There are chronic small vessel disease changes in the subcortical and periventricular white matter without lost landeros-white differentiation. The orbits and their contents are grossly within normal limits. The bony calvarium is grossly intact. The paranasal sinuses are clear. The mastoid air cells are well aerated. Impression: 1. Age-related changes of the brain without acute intracranial abnormality. Please note that all CT scans at this facility use dose modulation, iterative reconstruction, and/or weight-based dosing when appropriate to reduce radiation dose to as low as reasonably achievable. Dictated by Andre Fernandez MD @ 01/28/2021 3:49:05 PM (Electronically Signed)
--- NOTE | 2021-01-28 15:56 | CRLCT ---
For Patients: As a result of the Century Cures Act, medical imaging exams and procedure reports are released immediately into your electronic medical record. You may view this report before your referring provider. If you have questions, please contact your health care provider. INDICATION: Acute stroke, word finding difficulty. TECHNIQUE: High-resolution axial CT images acquired through the head and neck following rapid intravenous administration of iodinated contrast. Multiplanar MIPS of cranial and cervical vasculature performed. COMPARISON: Noncontrast head CT performed just prior. FINDINGS: CTA head: There is calcified plaque around the carotid siphons. There is no significant stenosis or large vessel occlusion. No aneurysm or vascular malformation is identified. CTA neck: Carotid arteries: There is atherosclerotic plaque. There is no significant stenosis by NASCET criteria. There is no evidence for dissection. Vertebral arteries: There is atherosclerotic plaque. There is no significant stenosis. There is no evidence for dissection. The soft tissues of the neck are within normal limits. The cervical spine is in normal alignment. Degenerative changes are noted in the cervical spine. The lung apices are clear. IMPRESSION: Intracranial and carotid atherosclerotic disease without significant stenosis. No acute intracranial abnormality at CTA. Willian Diop MD [employer] [facility] Please note that all CT scans at this facility use dose modulation, iterative reconstruction, and/or weight-based dosing when appropriate to reduce radiation dose to as low as reasonably achievable. Dictated by Willian Diop MD @ 01/28/2021 5:04:02 PM (Electronically Signed)
[2021-01-28 16:12] VITALS: BP 127/71; PULSE 78
== END 2021-01-28 16:54 | disposition home or self-care (01) ==
LOC: JP.ED 14:05
DX: R47.9 Unspecified speech disturbances (principal)
CPT/HCPCS: 36415; 70450; 70496; 70498; 80053; 80305; 80307; 81001; 82140; 83690; 85027; 93005; 99285; Q9967

== ENCOUNTER 2022-05-13 18:26 | Emergency (ER) | payer MEDICARE, OTHER ==
[2022-05-13 19:06] VITALS: BP 148/87; PULSE 77
[2022-05-13] MEDS ORDERED: Sodium Chloride 0.9% 10 ML Syringe FLUSH PRN (19:12)
[2022-05-13 19:43] LABS: ESTIMATED GFR 102 mL/min (>60)
[2022-05-13] MEDS ORDERED: Sodium Chloride 0.9% 1,000 ML IV SCH (20:00)
== END 2022-05-13 21:40 | disposition home or self-care (01) ==
LOC: JP.ED 18:26
DX: T18.128A Food in esophagus causing other injury, initial encounter (principal); E86.0 Dehydration; I25.10 Atherosclerotic heart disease of native coronary artery without angina pectoris; I10 Essential (primary) hypertension; K21.9 Gastro-esophageal reflux disease without esophagitis; E03.9 Hypothyroidism, unspecified; M19.90 Unspecified osteoarthritis, unspecified site; Z88.0 Allergy status to penicillin; Z91.010 Allergy to peanuts; Z79.899 Other long term (current) drug therapy
CPT/HCPCS: 36415; 80053; 81001; 84484; 85025; 87086; 93005; 93010; 96360; 99283; 99283-25; J3490; J7030

== ENCOUNTER 2022-05-14 04:40 | Day surgery (SDC) | payer MEDICARE, OTHER ==
[2022-05-14] MEDS ORDERED: Cyanocobalamin (Vitamin B12) 1,000 MCG/ML SDV IM ONE (06:39)
[2022-05-14] MEDS ORDERED: Lactated Ringers 1,000 ML IV SCH (06:45)
[2022-05-14] MEDS ORDERED: MVI, Adult with Vitamin K 10 ML, Thiamine 200 MG, Zinc/Copper/Manganese/Selenium 1 ML i... IV ONE ×4 (07:00)
[2022-05-14] MEDS ORDERED: Propofol 200 MG/20 ML SDV ONE (07:25)
[2022-05-14] MEDS ORDERED: fentaNYL 50 MCG/ML SDV ONE (07:25)
[2022-05-14 14:15] VITALS: BP 158/74; PULSE 83
== END 2022-05-14 14:30 | disposition home or self-care (01) ==
LOC: JP.SDS 04:40
PROVIDERS: ATTEND Surgery
DX: T18.128A Food in esophagus causing other injury, initial encounter (principal); I10 Essential (primary) hypertension; I25.10 Atherosclerotic heart disease of native coronary artery without angina pectoris; K21.9 Gastro-esophageal reflux disease without esophagitis; E03.9 Hypothyroidism, unspecified; J40 Bronchitis, not specified as acute or chronic; Z79.899 Other long term (current) drug therapy; Z88.0 Allergy status to penicillin
CPT/HCPCS: 36415; 82728; J2704; J3010; J3411; J7120

== ENCOUNTER 2023-11-04 13:07 | Emergency (ER) | payer MEDICARE, OTHER ==
[2023-11-04 13:39] LABS: BASOPHILS ABSOLUTE AUTO 0.02 K/uL (0.00-0.10); BASOPHILS PERCENT AUTO 0.4 % (0.1-1.3); EOSINOPHILS ABSOLUTE AUTO 0.02 K/uL (0.00-0.40); EOSINOPHILS PERCENT AUTO 0.4 % (0.0-5.4); IMMATURE GRAN ABSOLUTE AUTO 0.05 K/uL (0.00-0.23); IMMATURE GRAN PERCENT AUTO 1.1 % (0.0-0.7); LYMPHOCYTES ABSOLUTE AUTO 0.99 K/uL (0.8-3.3); LYMPHOCYTES PERCENT AUTO 20.9 % (11.4-47.7); MEAN CORPUSCULAR HEMOGLOBIN 33.4 pg (31.6-35.5); MEAN CORPUSCULAR HGB CONC 34.3 g/dL (31.6-35.5); MEAN CORPUSCULAR VOLUME 97.5 fL (81.4-99.0); MONOCYTES ABSOLUTE AUTO 0.29 K/uL (0.20-0.90); MONOCYTES PERCENT AUTO 6.1 % (3.3-12.6); NEUTROPHILS ABSOLUTE AUTO 3.37 K/uL (1.0-7.6); NEUTROPHILS PERCENT AUTO 71.1 % (40.0-78.1); PLATELET COUNT,PLT 130 K/uL (130-375); RED BLOOD CELL COUNT 3.59 M/uL (3.77-5.24); WHITE BLOOD CELL COUNT,WBC 4.7 K/uL (3.2-11.0)
[2023-11-04 13:54] LABS: ANION GAP 12.4 mmol/L (5.0-14.0); CALCIUM 8.5 mg/dL (8.5-10.1); CREATININE 0.6 mg/dL (0.6-1.0); EST CRCL DRUG DOSING (CG) 73.2 mL/min; POTASSIUM,K 3.4 mmol/L (3.6-5.2)
[2023-11-04 15:15] VITALS: BP 156/75; PULSE 81
[2023-11-04] MEDS: Acetaminophen/oxyCODONE 325-5 MG Tab PO ONE (16:15)
== END 2023-11-04 17:09 | disposition home or self-care (01) ==
LOC: JP.ED 13:07
DX: S32.501A Unspecified fracture of right pubis, initial encounter for closed fracture (principal); I25.10 Atherosclerotic heart disease of native coronary artery without angina pectoris; I10 Essential (primary) hypertension; J40 Bronchitis, not specified as acute or chronic; K21.9 Gastro-esophageal reflux disease without esophagitis; M19.90 Unspecified osteoarthritis, unspecified site; E03.9 Hypothyroidism, unspecified; Z90.49 Acquired absence of other specified parts of digestive tract; Z90.710 Acquired absence of both cervix and uterus; Z79.899 Other long term (current) drug therapy; Z79.82 Long term (current) use of aspirin; Z88.0 Allergy status to penicillin; W01.0XXA Fall on same level from slipping, tripping and stumbling without subsequent striking against object, initial encounter
CPT/HCPCS: 36415; 70450; 72125; 73521; 73552; 76377; 80048; 85025; 99284; A9270

== ENCOUNTER 2023-11-10 11:28 | Inpatient (IN) | payer MEDICARE, OTHER ==
[2023-11-10] MEDS: HYDROmorphone 0.5 MG/0.5 ML Syringe IVPUSH ONE ×2 (12:16→14:20)
[2023-11-10 12:20] LABS: BASOPHILS ABSOLUTE AUTO 0.03 K/uL (0.00-0.10); BASOPHILS PERCENT AUTO 0.5 % (0.1-1.3); EOSINOPHILS PERCENT AUTO 0.2 % (0.0-5.4); HEMATOCRIT 32.6 % (34.3-46.0); HEMOGLOBIN 10.9 g/dL (11.2-15.5); IMMATURE GRAN ABSOLUTE AUTO 0.03 K/uL (0.00-0.23); IMMATURE GRAN PERCENT AUTO 0.5 % (0.0-0.7); LYMPHOCYTES ABSOLUTE AUTO 0.83 K/uL (0.8-3.3); LYMPHOCYTES PERCENT AUTO 14.8 % (11.4-47.7); MEAN CORPUSCULAR HEMOGLOBIN 32.8 pg (31.6-35.5); MEAN CORPUSCULAR HGB CONC 33.4 g/dL (31.6-35.5); MEAN CORPUSCULAR VOLUME 98.2 fL (81.4-99.0); MONOCYTES PERCENT AUTO 7.1 % (3.3-12.6); NEUTROPHILS PERCENT AUTO 76.9 % (40.0-78.1); PLATELET COUNT,PLT 141 K/uL (130-375); RED BLOOD CELL COUNT 3.32 M/uL (3.77-5.24); WHITE BLOOD CELL COUNT,WBC 5.6 K/uL (3.2-11.0)
[2023-11-10 12:22] LABS: EOSINOPHILS ABSOLUTE AUTO 0.01 K/uL (0.00-0.40)
[2023-11-10 12:35] LABS: ANION GAP 7.7 mmol/L (5.0-14.0); CALCIUM 8.6 mg/dL (8.5-10.1); CREATININE 0.6 mg/dL (0.6-1.0); EST CRCL DRUG DOSING (CG) 72.17 mL/min; POTASSIUM,K 4.2 mmol/L (3.6-5.2)
[2023-11-10] MEDS ORDERED: Sodium Chloride 0.9% 10 ML Syringe FLUSH PRN (17:52)
[2023-11-10] MEDS ORDERED: Ondansetron 4 MG/2 ML SDV IV PRN (17:52)
[2023-11-10] MEDS ORDERED: fentaNYL 25 MCG/HR Transdermal Patch TRDERM SCH (17:52)
[2023-11-10] MEDS ORDERED: HYDROmorphone 0.5 MG/0.5 ML Syringe IVPUSH PRN (17:52)
[2023-11-10] MEDS: oxyCODONE 5 MG Tab PO PRN (18:28)
[2023-11-10] MEDS: Cyclobenzaprine 10 MG Tab PO PRN (18:28)
[2023-11-10] MEDS: Enoxaparin 40 MG/0.4 ML Syringe SUBCUT SCH (18:29)
[2023-11-10] MEDS: Gabapentin 300 MG Cap PO SCH (18:29)
[2023-11-10] MEDS: fentaNYL 50 MCG/HR Transdermal Patch TRDERM SCH (19:53)
[2023-11-10] MEDS ORDERED: PARoxetine 20 MG Tab PO PRN (20:06)
[2023-11-10] MEDS: Sennosides 8.6 MG Tab PO SCH (21:10)
[2023-11-10] MEDS: Aspirin 81 MG Tab.Chew PO SCH (21:41)
[2023-11-10] MEDS: Celecoxib 200 MG Cap PO SCH (21:42)
[2023-11-11] MEDS: Levothyroxine 50 MCG Tab PO SCH (07:30)
[2023-11-11] MEDS: Pantoprazole 40 MG Tab.CR PO SCH (07:30)
[2023-11-11] MEDS: Celecoxib 100 MG Cap PO SCH (09:00)
[2023-11-11] MEDS ORDERED: Methotrexate 2.5 MG Tab PO SCH (09:00)
[2023-11-11] MEDS: CHECK FENTANYL 50 MCG TOP SCH (09:00)
[2023-11-11] MEDS: Metoprolol Succinate 50 MG Tab.ER PO SCH (09:00)
[2023-11-11] MEDS: atorvaSTATin 20 MG Tab PO SCH (09:00)
[2023-11-11] MEDS: Psyllium Husk Powder Sugar Free 5.85 GM Packet PO SCH (09:00)
[2023-11-11] MEDS: Losartan 50 MG Tab PO SCH (09:00)
[2023-11-11] MEDS: Acetaminophen 325 MG Tab PO PRN (12:18)
[2023-11-11] MEDS: Polyethylene Glycol 3350 Powder 17 GM Packet PO PRN (17:41)
[2023-11-11] MEDS: Enoxaparin 40 MG/0.4 ML Syringe SUBCUT SCH (17:41)
[2023-11-12] MEDS: MINOCYCLINE 100 MG PO SCH (09:23)
[2023-11-12] MEDS: ESTRADIOL NORETH PO SCH (09:26)
[2023-11-13] MEDS: Polyethylene Glycol 3350 Powder 17 GM Packet PO SCH (08:16)
[2023-11-13] MEDS: oxyCODONE 5 MG Tab PO PRN (13:45)
[2023-11-13] MEDS: Enoxaparin 40 MG/0.4 ML Syringe SUBCUT SCH (16:58)
[2023-11-14 11:58] VITALS: BP 127/65; PULSE 75
[2023-11-14] MEDS ORDERED: CHECK FENTANYL 50 MCG TOP SCH (21:00)
== END 2023-11-14 13:30 | DRG 536 ==
LOC: JP.ED 11:28 → JP.MS 15:45
PROVIDERS: ADMIT Hospitalist; ATTEND Hospitalist
DX: S32.591A Other specified fracture of right pubis, initial encounter for closed fracture (principal); S32.512A Fracture of superior rim of left pubis, initial encounter for closed fracture; S32.592A Other specified fracture of left pubis, initial encounter for closed fracture; S32.511A Fracture of superior rim of right pubis, initial encounter for closed fracture; I25.10 Atherosclerotic heart disease of native coronary artery without angina pectoris; I10 Essential (primary) hypertension; Z90.49 Acquired absence of other specified parts of digestive tract; K59.09 Other constipation; K21.9 Gastro-esophageal reflux disease without esophagitis; Z79.890 Hormone replacement therapy; F41.9 Anxiety disorder, unspecified; F32.A Depression, unspecified; Z79.1 Long term (current) use of non-steroidal anti-inflammatories (NSAID); E03.9 Hypothyroidism, unspecified; M85.80 Other specified disorders of bone density and structure, unspecified site; M16.11 Unilateral primary osteoarthritis, right hip; M47.816 Spondylosis without myelopathy or radiculopathy, lumbar region; H54.7 Unspecified visual loss; M62.58 Muscle wasting and atrophy, not elsewhere classified, other site; M06.9 Rheumatoid arthritis, unspecified; Z96.642 Presence of left artificial hip joint; Z96.651 Presence of right artificial knee joint; Z88.0 Allergy status to penicillin; Z79.899 Other long term (current) drug therapy; Z79.2 Long term (current) use of antibiotics; Z79.82 Long term (current) use of aspirin; Z98.890 Other specified postprocedural states; Z90.89 Acquired absence of other organs; Z95.5 Presence of coronary angioplasty implant and graft; Z98.84 Bariatric surgery status; Z90.710 Acquired absence of both cervix and uterus; W19.XXXA Unspecified fall, initial encounter
CPT/HCPCS: 36415; 72192; 76377; 80048; 85025; J1170 ×2; 96374; 96376; 97161-GP; 97530-GP; 99284-25; A9270-GY; J1650

== ENCOUNTER 2024-02-10 19:50 | Inpatient (IN) | payer MEDICARE, OTHER ==
[2024-02-10 20:08] LABS: BASOPHILS ABSOLUTE AUTO 0.04 K/uL (0.00-0.10); BASOPHILS PERCENT AUTO 0.7 % (0.1-1.3); EOSINOPHILS ABSOLUTE AUTO 0.06 K/uL (0.00-0.40); HEMATOCRIT 37.6 % (34.3-46.0); HEMOGLOBIN 12.6 g/dL (11.2-15.5); IMMATURE GRAN ABSOLUTE AUTO 0.02 K/uL (0.00-0.23); IMMATURE GRAN PERCENT AUTO 0.3 % (0.0-0.7); LYMPHOCYTES ABSOLUTE AUTO 0.85 K/uL (0.8-3.3); LYMPHOCYTES PERCENT AUTO 14.3 % (11.4-47.7); MEAN CORPUSCULAR HGB CONC 33.5 g/dL (31.6-35.5); MEAN CORPUSCULAR VOLUME 95.4 fL (81.4-99.0); MONOCYTES ABSOLUTE AUTO 0.28 K/uL (0.20-0.90); MONOCYTES PERCENT AUTO 4.7 % (3.3-12.6); NEUTROPHILS ABSOLUTE AUTO 4.68 K/uL (1.0-7.6); PLATELET COUNT,PLT 153 K/uL (130-375); RED BLOOD CELL COUNT 3.94 M/uL (3.77-5.24); WHITE BLOOD CELL COUNT,WBC 5.9 K/uL (3.2-11.0)
[2024-02-10 20:29] LABS: A/G RATIO 1.2 (1.2-2.2); ALANINE AMINOTRANSFERASE,ALT 27 U/L (12-78); ALBUMIN 3.6 g/dL (3.4-5.0); ALKALINE PHOSPHATASE 156 U/L (46-116); ANION GAP 15.2 mmol/L (5.0-14.0); ASPARTATE AMNIOTRANSFERASE,AST 27 U/L (15-37); BILIRUBIN TOTAL 0.6 mg/dL (0.2-1.0); BLOOD UREA NITROGEN,BUN 6 mg/dL (7-18); CALCIUM 9.1 mg/dL (8.5-10.1); CARBON DIOXIDE,CO2 25 mmol/L (21-32); CHLORIDE,CL 107 mmol/L (100-108); CREATININE 0.6 mg/dL (0.6-1.0); ESTIMATED GFR 97 mL/min (>60); GLUCOSE RANDOM 115 mg/dL (74-106); POTASSIUM,K 3.2 mmol/L (3.6-5.2); PROTEIN TOTAL,TP 6.7 g/dL (6.4-8.2); SODIUM,NA 144 mmol/L (140-148)
[2024-02-10 21:34] LABS: APPEARANCE,URINE CLEAR (CLEAR); BILIRUBIN,URINE NEGATIVE (NEGATIVE); COLOR,URINE YELLOW (YELLOW); GLUCOSE,URINE NEGATIVE (NEGATIVE); KETONES,URINE 15 mg/dL (NEGATIVE); LEUKOCYTE ESTERASE,URINE NEGATIVE (NEGATIVE); NITRITE,URINE NEGATIVE (NEGATIVE); OCCULT BLOOD,URINE NEGATIVE (NEGATIVE); PROTEIN,URINE NEGATIVE (NEGATIVE); UROBILINOGEN,URINE 0.2 EU/dL (0.2-1.0)
[2024-02-10 21:37] LABS: AMPHETAMINES SCREEN, URINE NEGATIVE (NEGATIVE); BARBITURATE SCREEN,URINE NEGATIVE (NEGATIVE); BENZODIAZEPINES SCREEN,URINE NEGATIVE (NEGATIVE); METHADONE SCREEN, URINE NEGATIVE (NEGATIVE); METHAMPHETAMINES SCREEN, URINE NEGATIVE (NEGATIVE); OXYCODONE SCREEN,URINE PRESUMPTIVE POSITIVE (NEGATIVE); PROPOXYPHENE SCREEN,URINE NEGATIVE (NEGATIVE); THC SCREEN,URINE 50 NG/ML NEGATIVE (NEGATIVE)
[2024-02-10 21:40] LABS: AMORPHOUS SEDIMENT,URINE NOT SEEN; BACTERIA,URINE FEW; EPITHELIAL CELLS,URINE RARE; MUCUS,URINE NOT SEEN; RBC,URINE NOT SEEN (0-5); WBC,URINE 0-5 (0-5)
[2024-02-10] MEDS: fentaNYL 50 MCG/HR Transdermal Patch TRDERM SCH (22:06)
[2024-02-10] MEDS: Sodium Chloride 0.9% 1,000 ML IV SCH (22:08)
[2024-02-10] MEDS: Potassium Chloride 20 MEQ Tab.ER PO ONE (22:08)
[2024-02-11] MEDS: LORazepam 2 MG/ML SDV IVPUSH PRN (00:11)
[2024-02-11] MEDS: Sodium Chloride 0.9% 1,000 ML IV SCH (00:19)
[2024-02-11] MEDS: Potassium Chloride 10 MEQ in Premix Bag 1 BAG IV ONE ×2 (00:28→01:51)
[2024-02-11] MEDS: diphenhydrAMINE 50 MG/ML SDV IVPUSH ONE (00:55)
[2024-02-11 00:59] LABS: TSH ULTRASENSITIVE 1.716 uIU/mL (0.358-3.740)
[2024-02-11] MEDS: Haloperidol Lactate 5 MG/ML SDV IVPUSH ONE (01:45)
[2024-02-11] MEDS: Potassium Chloride 100 ML ONE (01:56)
[2024-02-11] MEDS: Potassium Chloride 20 MEQ in Premix Bag 1 BAG IV ONE (02:13)
[2024-02-11] MEDS: LORazepam 2 MG/ML SDV IVPUSH ONE ×2 (03:03→05:50)
[2024-02-11 04:55] LABS: BASOPHILS PERCENT AUTO 0.3 % (0.1-1.3); EOSINOPHILS PERCENT AUTO 0.1 % (0.0-5.4); HEMATOCRIT 36.9 % (34.3-46.0); HEMOGLOBIN 12.8 g/dL (11.2-15.5); IMMATURE GRAN PERCENT AUTO 0.3 % (0.0-0.7); LYMPHOCYTES ABSOLUTE AUTO 1.01 K/uL (0.8-3.3); LYMPHOCYTES PERCENT AUTO 14.6 % (11.4-47.7); MEAN CORPUSCULAR HEMOGLOBIN 32.1 pg (31.6-35.5); MEAN CORPUSCULAR HGB CONC 34.7 g/dL (31.6-35.5); MEAN CORPUSCULAR VOLUME 92.5 fL (81.4-99.0); MONOCYTES ABSOLUTE AUTO 0.36 K/uL (0.20-0.90); MONOCYTES PERCENT AUTO 5.2 % (3.3-12.6); NEUTROPHILS ABSOLUTE AUTO 5.52 K/uL (1.0-7.6); NEUTROPHILS PERCENT AUTO 79.5 % (40.0-78.1); PLATELET COUNT,PLT 160 K/uL (130-375); RED BLOOD CELL COUNT 3.99 M/uL (3.77-5.24); WHITE BLOOD CELL COUNT,WBC 6.9 K/uL (3.2-11.0)
[2024-02-11 05:12] LABS: CALCIUM 9.2 mg/dL (8.5-10.1); CREATININE 0.5 mg/dL (0.6-1.0); EST CRCL DRUG DOSING (CG) 86.6 mL/min; POTASSIUM,K 3.1 mmol/L (3.6-5.2)
[2024-02-11 05:16] LABS: BASOPHILS ABSOLUTE AUTO 0.02 K/uL (0.00-0.10); EOSINOPHILS ABSOLUTE AUTO 0.01 K/uL (0.00-0.40); IMMATURE GRAN ABSOLUTE AUTO 0.02 K/uL (0.00-0.23)
[2024-02-11 05:20] LABS: ANION GAP 14.1 mmol/L (5.0-14.0)
[2024-02-11] MEDS ORDERED: LORazepam 1 MG Tab PO SCH (09:30)
[2024-02-11] MEDS: Potassium Chloride 20 MEQ Tab.ER PO ONE (09:59)
[2024-02-11] MEDS: Potassium Chloride 10 MEQ in Premix Bag 1 BAG IV SCH (10:08)
[2024-02-11] MEDS: LORazepam 2 MG/ML SDV IV SCH (10:23)
[2024-02-11] MEDS: Aspirin 81 MG Tab.Chew PO SCH (10:26)
[2024-02-11] MEDS: Celecoxib 100 MG Cap PO SCH (10:26)
[2024-02-11] MEDS: PARoxetine 20 MG Tab PO SCH (10:27)
[2024-02-11] MEDS: Metoprolol Succinate 50 MG Tab.ER PO SCH (10:27)
[2024-02-11] MEDS: Losartan 50 MG Tab PO SCH (10:27)
[2024-02-11] MEDS: Levothyroxine 50 MCG Tab PO SCH (10:27)
[2024-02-11] MEDS: Pantoprazole 40 MG Tab.CR PO SCH (10:27)
[2024-02-11] MEDS: Haloperidol Lactate 5 MG/ML SDV IVPUSH PRN (11:21)
[2024-02-11] MEDS: Gabapentin 300 MG Cap PO SCH (11:28)
[2024-02-11] MEDS: Ondansetron 4 MG/2 ML SDV IVPUSH PRN (14:26)
[2024-02-11] MEDS: PHENobarbitaL sodium 260 MG in Sodium Chloride 0.9% 100 ML IV ONE (14:55)
[2024-02-11] MEDS: Thiamine 200 MG/2 ML MDV IVPUSH SCH (15:22)
[2024-02-11] MEDS: Folic Acid 1 MG in Sodium Chloride 0.9% 50 ML IV SCH (16:00)
[2024-02-11] MEDS: Pantoprazole 40 MG Vial IVPUSH SCH (17:00)
[2024-02-11] MEDS: Albuterol 0.083% 2.5 MG/3 ML Neb Soln NEB PRN (18:23)
[2024-02-11] MEDS: Nystatin Topical Powder 15 GM Bottle TOP SCH (20:55)
[2024-02-11] MEDS: Albuterol 0.083% 2.5 MG/3 ML Neb Soln NEB SCH (21:19)
[2024-02-12] MEDS: PHENobarbital Sodium 65 MG/ML SDV IVPUSH PRN (01:00)
[2024-02-12] MEDS: Sodium Chloride 0.9% 1,000 ML IV SCH (04:32)
[2024-02-12 04:51] LABS: HEMATOCRIT 35.8 % (34.3-46.0); HEMOGLOBIN 12.2 g/dL (11.2-15.5); MEAN CORPUSCULAR HEMOGLOBIN 31.9 pg (31.6-35.5); MEAN CORPUSCULAR HGB CONC 34.1 g/dL (31.6-35.5); MEAN CORPUSCULAR VOLUME 93.5 fL (81.4-99.0); RED BLOOD CELL COUNT 3.83 M/uL (3.77-5.24); WHITE BLOOD CELL COUNT,WBC 7.9 K/uL (3.2-11.0)
[2024-02-12 05:17] LABS: A/G RATIO 1.1 (1.2-2.2); ALANINE AMINOTRANSFERASE,ALT 23 U/L (12-78); ALBUMIN 3.2 g/dL (3.4-5.0); ALKALINE PHOSPHATASE 124 U/L (46-116); ASPARTATE AMNIOTRANSFERASE,AST 22 U/L (15-37); BILIRUBIN TOTAL 0.7 mg/dL (0.2-1.0); BLOOD UREA NITROGEN,BUN 3 mg/dL (7-18); CALCIUM 8.7 mg/dL (8.5-10.1); CARBON DIOXIDE,CO2 27 mmol/L (21-32); CHLORIDE,CL 105 mmol/L (100-108); CREATININE 0.6 mg/dL (0.6-1.0); EST CRCL DRUG DOSING (CG) 72.17 mL/min; ESTIMATED GFR 97 mL/min (>60); GLUCOSE RANDOM 142 mg/dL (74-106); PROTEIN TOTAL,TP 6.2 g/dL (6.4-8.2); SODIUM,NA 142 mmol/L (140-148)
[2024-02-12 05:25] LABS: ANION GAP 12.7 mmol/L (5.0-14.0); POTASSIUM,K 2.7 mmol/L (3.6-5.2)
[2024-02-12] MEDS: Potassium Chloride 10 MEQ in Premix Bag 1 BAG IV SCH ×2 (06:16→13:10)
[2024-02-12] MEDS: Folic Acid 1 MG Tab PO SCH (08:28)
[2024-02-12] MEDS ORDERED: Albuterol 0.083% 2.5 MG/3 ML Neb Soln NEB PRN (09:20)
[2024-02-12 11:58] LABS: BICARBONATE,ARTERIAL 26.2 mmol/L (22.0-26.0); PCO2 ARTERIAL 34.3 mmHg (35.0-42.0); PO2 ARTERIAL 72.1 mmHg (75.0-100.0)
[2024-02-12] MEDS: methylPREDNISolone Sodium Succinate 40 MG/1 ML SDV IVPUSH SCH (12:00)
[2024-02-12 12:02] LABS: BASE EXCESS ARTERIAL 3.5 mm/L; CARBOXYHEMOGLOBIN 0.4 % (0.0-1.6); O2 SATURATION ARTERIAL 91.9 % (95.0-98.0); OXYHEMOGLOBIN 88.2 %; TOTAL HEMOGLOBIN 13.1 g/dL (12.0-16.0)
[2024-02-12 12:03] LABS: METHEMOGLOBIN 3.6 %
[2024-02-13 04:47] LABS: HEMATOCRIT 41.3 % (34.3-46.0); HEMOGLOBIN 14.4 g/dL (11.2-15.5); MEAN CORPUSCULAR HEMOGLOBIN 31.9 pg (31.6-35.5); MEAN CORPUSCULAR HGB CONC 34.9 g/dL (31.6-35.5); MEAN CORPUSCULAR VOLUME 91.6 fL (81.4-99.0); RED BLOOD CELL COUNT 4.51 M/uL (3.77-5.24); WHITE BLOOD CELL COUNT,WBC 7.9 K/uL (3.2-11.0)
[2024-02-13 05:08] LABS: BLOOD UREA NITROGEN,BUN 4 mg/dL (7-18); CALCIUM 9.5 mg/dL (8.5-10.1); CARBON DIOXIDE,CO2 27 mmol/L (21-32); CHLORIDE,CL 97 mmol/L (100-108); CREATINE KINASE,CK 199 U/L (26-192); CREATININE 0.5 mg/dL (0.6-1.0); ESTIMATED GFR 101 mL/min (>60); GLUCOSE RANDOM 157 mg/dL (74-106); MAGNESIUM 1.7 mg/dL (1.8-2.4); SODIUM,NA 135 mmol/L (140-148)
[2024-02-13 05:12] LABS: ANION GAP 13.9 mmol/L (5.0-14.0); C-REACTIVE PROTEIN < 0.50 mg/dL (<0.50); POTASSIUM,K 2.9 mmol/L (3.6-5.2)
[2024-02-13] MEDS: Potassium Chloride 10 MEQ in Premix Bag 1 BAG IV SCH ×2 (05:52→12:56)
[2024-02-13] MEDS: Magnesium Sulfate/Water Premix 2 GM in Premix Bag 1 BAG IV SCH (11:46)
[2024-02-13] MEDS: Clindamycin in 0.9 % Sod Chlor 600 MG in Premix Bag 1 BAG IV SCH (11:55)
[2024-02-13 17:08] LABS: PROTEIN,CSF 52.3 mg/dL (15-45)
[2024-02-13 18:14] LABS: COLOR,CSF COLORLESS (COLORLESS); TUBE NUMBER,CSF 3
[2024-02-13 18:15] LABS: APPEARANCE CSF CLEAR (CLEAR); MONONUCLEAR, CSF 0 % (54-100); POLYMORPHONUCLEAR, CSF 0 % (0-7); RBC,CSF 3 /ul (0-0); WBC,CSF 0 /ul (0-5)
[2024-02-13 18:28] LABS: TUBE VOLUME,CSF 1 mls
[2024-02-13] MEDS: Sodium Chloride 0.9% 1,000 ML IV SCH (22:40)
[2024-02-14 06:13] LABS: A/G RATIO 1.1 (1.2-2.2); ALANINE AMINOTRANSFERASE,ALT 25 U/L (12-78); ALBUMIN 3.4 g/dL (3.4-5.0); ALKALINE PHOSPHATASE 130 U/L (46-116); ASPARTATE AMNIOTRANSFERASE,AST 31 U/L (15-37); BILIRUBIN TOTAL 0.8 mg/dL (0.2-1.0); BLOOD UREA NITROGEN,BUN 8 mg/dL (7-18); CARBON DIOXIDE,CO2 26 mmol/L (21-32); CHLORIDE,CL 105 mmol/L (100-108); CREATININE 0.5 mg/dL (0.6-1.0); ESTIMATED GFR 101 mL/min (>60); GLUCOSE RANDOM 118 mg/dL (74-106); MAGNESIUM 2.1 mg/dL (1.8-2.4); POTASSIUM,K 3.3 mmol/L (3.6-5.2); PROTEIN TOTAL,TP 6.6 g/dL (6.4-8.2); SODIUM,NA 140 mmol/L (140-148)
[2024-02-14 06:14] LABS: ANION GAP 12.3 mmol/L (5.0-14.0)
[2024-02-14] MEDS ORDERED: methylPREDNISolone Sodium Succinate 40 MG/1 ML SDV IVPUSH SCH (09:00)
[2024-02-14] MEDS: methylPREDNISolone Sodium Succinate 40 MG/1 ML SDV IVPUSH ONE (09:41)
[2024-02-14] MEDS: Potassium Chloride 10 MEQ in Premix Bag 1 BAG IV SCH ×2 (09:42→16:00)
[2024-02-14] MEDS: VERIFY FENTANYL PATCH TOP SCH (09:48)
[2024-02-14] MEDS: predniSONE 20 MG Tab PO SCH (09:58)
[2024-02-14] MEDS: Metoprolol Tartrate 5 MG/5 ML SDV IVPUSH PRN (11:54)
[2024-02-14] MEDS: Dimethicone 20%/Zinc Oxide 25% 56 GM Spray Bottle TOP PRN (13:06)
[2024-02-15 05:53] LABS: CALCIUM 9.1 mg/dL (8.5-10.1); CREATININE 0.5 mg/dL (0.6-1.0); EST CRCL DRUG DOSING (CG) 86.6 mL/min; POTASSIUM,K 3.3 mmol/L (3.6-5.2)
[2024-02-15 05:56] LABS: ANION GAP 15.3 mmol/L (5.0-14.0)
[2024-02-15] MEDS: Sodium Chloride 0.9% 1,000 ML IV SCH (08:15)
[2024-02-15] MEDS: Potassium Chloride 10 MEQ in Premix Bag 1 BAG IV SCH ×2 (08:50→13:03)
[2024-02-15] MEDS: Magnesium Sulfate/Water Premix 2 GM in Premix Bag 1 BAG IV ONE (19:19)
[2024-02-15 22:35] LABS: CRYPTOCOCCUS ANTIGEN CSF, EIA Negative (Negative)
[2024-02-16 00:46] LABS: WEST NILE VIRUS AB IGG CSF 0.06 IV (<=1.29)
[2024-02-16 03:26] LABS: ALBUMIN INDEX 8.6 ratio (0.0-9.0); CSF IGG SYNTHESIS RATE 2.1 mg/d (<=8.0); CSF IGG/ALBUMIN RATIO 0.14 ratio (0.09-0.25); IGG INDEX 0.58 ratio (0.28-0.66); IMMUNOGLOBULIN G 919 mg/dL (768-1632); IMMUNOGLOBULIN G CSF 4.6 mg/dL (0.0-6.0)
[2024-02-16 05:21] LABS: HEMATOCRIT 41.7 % (34.3-46.0); HEMOGLOBIN 14.5 g/dL (11.2-15.5); MEAN CORPUSCULAR HEMOGLOBIN 32.2 pg (31.6-35.5); MEAN CORPUSCULAR HGB CONC 34.8 g/dL (31.6-35.5); MEAN CORPUSCULAR VOLUME 92.7 fL (81.4-99.0); RED BLOOD CELL COUNT 4.5 M/uL (3.77-5.24); WHITE BLOOD CELL COUNT,WBC 9.3 K/uL (3.2-11.0)
[2024-02-16 05:43] LABS: CALCIUM 9.2 mg/dL (8.5-10.1); CREATININE 0.4 mg/dL (0.6-1.0); EST CRCL DRUG DOSING (CG) 108.26 mL/min; MAGNESIUM 2.1 mg/dL (1.8-2.4); POTASSIUM,K 3.8 mmol/L (3.6-5.2)
[2024-02-16 05:45] LABS: ANION GAP 16.8 mmol/L (5.0-14.0)
[2024-02-16] MEDS ORDERED: Naloxone 0.4 MG/ML SDV IVPUSH PRN (10:53)
[2024-02-16] MEDS: Potassium Chloride 10 MEQ in Premix Bag 1 BAG IV SCH (13:07)
[2024-02-17 05:28] LABS: CALCIUM 9.2 mg/dL (8.5-10.1); CREATININE 0.5 mg/dL (0.6-1.0); EST CRCL DRUG DOSING (CG) 86.6 mL/min; POTASSIUM,K 3.9 mmol/L (3.6-5.2)
[2024-02-17 05:30] LABS: ANION GAP 15.9 mmol/L (5.0-14.0)
[2024-02-17] MEDS: Sodium Chloride 0.9% 1,000 ML IV SCH ×2 (11:54→19:21)
[2024-02-17] MEDS: HYDROmorphone 0.5 MG/0.5 ML Syringe IVPUSH PRN (15:31)
[2024-02-17] MEDS: Sodium Chloride 0.9% 500 ML IV ONE ×2 (18:20→21:17)
[2024-02-18 06:01] LABS: ANION GAP 11.1 mmol/L (5.0-14.0); CALCIUM 8.6 mg/dL (8.5-10.1); CREATININE 0.4 mg/dL (0.6-1.0); EST CRCL DRUG DOSING (CG) 108.26 mL/min
[2024-02-18 09:28] LABS: APPEARANCE,URINE TURBID (CLEAR); BILIRUBIN,URINE NEGATIVE (NEGATIVE); COLOR,URINE RED (YELLOW); GLUCOSE,URINE NEGATIVE (NEGATIVE); KETONES,URINE 40 mg/dL (NEGATIVE); LEUKOCYTE ESTERASE,URINE NEGATIVE (NEGATIVE); NITRITE,URINE NEGATIVE (NEGATIVE); OCCULT BLOOD,URINE LARGE (NEGATIVE); PH,URINE 5.5 (5.0-8.0); PROTEIN,URINE 100 mg/dL (NEGATIVE); UROBILINOGEN,URINE 0.2 EU/dL (0.2-1.0)
[2024-02-18 09:29] LABS: AMORPHOUS SEDIMENT,URINE FEW; BACTERIA,URINE MODERATE; EPITHELIAL CELLS,URINE NOT SEEN; MUCUS,URINE NOT SEEN; RBC,URINE PACKED (0-5); WBC,URINE 0-5 (0-5)
[2024-02-18] MEDS: Sodium Chloride 0.9% 500 ML IV ONE (09:36)
[2024-02-18 11:18] LABS: BASOPHILS ABSOLUTE AUTO 0.05 K/uL (0.00-0.10); BASOPHILS PERCENT AUTO 0.5 % (0.1-1.3); EOSINOPHILS ABSOLUTE AUTO 0.42 K/uL (0.00-0.40); EOSINOPHILS PERCENT AUTO 4.6 % (0.0-5.4); HEMATOCRIT 40.9 % (34.3-46.0); HEMOGLOBIN 13.8 g/dL (11.2-15.5); IMMATURE GRAN PERCENT AUTO 0.2 % (0.0-0.7); LYMPHOCYTES ABSOLUTE AUTO 1.13 K/uL (0.8-3.3); LYMPHOCYTES PERCENT AUTO 12.3 % (11.4-47.7); MEAN CORPUSCULAR HEMOGLOBIN 32.5 pg (31.6-35.5); MEAN CORPUSCULAR HGB CONC 33.7 g/dL (31.6-35.5); MEAN CORPUSCULAR VOLUME 96.2 fL (81.4-99.0); MONOCYTES ABSOLUTE AUTO 0.81 K/uL (0.20-0.90); MONOCYTES PERCENT AUTO 8.8 % (3.3-12.6); NEUTROPHILS ABSOLUTE AUTO 6.74 K/uL (1.0-7.6); NEUTROPHILS PERCENT AUTO 73.6 % (40.0-78.1); PLATELET COUNT,PLT 142 K/uL (130-375); RED BLOOD CELL COUNT 4.25 M/uL (3.77-5.24); WHITE BLOOD CELL COUNT,WBC 9.2 K/uL (3.2-11.0)
[2024-02-18 11:19] LABS: IMMATURE GRAN ABSOLUTE AUTO 0.02 K/uL (0.00-0.23)
[2024-02-18] MEDS: Dextrose 5%-0.9% NaCl 1,000 ML IV SCH (11:47)
[2024-02-19 07:38] LABS: CALCIUM 8.3 mg/dL (8.5-10.1); CREATININE 0.4 mg/dL (0.6-1.0); EST CRCL DRUG DOSING (CG) 108.26 mL/min; POTASSIUM,K 3.4 mmol/L (3.6-5.2)
[2024-02-19 07:39] LABS: ANION GAP 10.4 mmol/L (5.0-14.0)
[2024-02-19] MEDS: Potassium Chloride 10 MEQ in Premix Bag 1 BAG IV SCH (09:05)
[2024-02-19] MEDS: Sodium Chloride 0.9% 1,000 ML IV SCH (11:56)
[2024-02-19] MEDS: Ketorolac 30 MG/ML SDV IVPUSH PRN (15:23)
[2024-02-20 05:12] LABS: CALCIUM 9.1 mg/dL (8.5-10.1); CREATININE 0.5 mg/dL (0.6-1.0); EST CRCL DRUG DOSING (CG) 86.6 mL/min; POTASSIUM,K 3.7 mmol/L (3.6-5.2)
[2024-02-20 05:14] LABS: ANION GAP 13.7 mmol/L (5.0-14.0)
[2024-02-20] MEDS ORDERED: Nystatin Topical Powder 15 GM Bottle TOP PRN (14:16)
[2024-02-20] MEDS: Divalproex Sodium Delayed-Release 125 MG Cap.Sprink PO ONE (15:01)
[2024-02-20] MEDS: Divalproex Sodium Delayed-Release 125 MG Cap.Sprink PO SCH (16:11)
[2024-02-20] MEDS ORDERED: Haloperidol Lactate 5 MG/ML SDV IVPUSH PRN (16:37)
[2024-02-20] MEDS: Pantoprazole 40 MG Tab.CR PO SCH (18:58)
[2024-02-20] MEDS: Melatonin 3 MG Tab PO PRN (18:58)
[2024-02-20] MEDS: LORazepam 0.5 MG Tab PO PRN (23:22)
[2024-02-21] MEDS: Sodium Chloride 0.9% 500 ML IV ONE (04:40)
[2024-02-21] MEDS: Thiamine 100 MG Tab PO SCH (09:46)
[2024-02-21] MEDS ORDERED: Sodium Chloride 0.9% 10 ML Syringe IV PRN (10:37)
[2024-02-21] MEDS: Divalproex Sodium Delayed-Release 125 MG Cap.Sprink PO ONE (10:50)
[2024-02-21] MEDS: Divalproex Sodium Delayed-Release 125 MG Cap.Sprink PO SCH (16:01)
[2024-02-21] MEDS: Acetaminophen 325 MG Tab PO PRN (18:34)
[2024-02-21] MEDS: oxyCODONE 5 MG Tab PO PRN (19:54)
[2024-02-22 05:49] LABS: HEMATOCRIT 40.3 % (34.3-46.0); HEMOGLOBIN 13.6 g/dL (11.2-15.5); MEAN CORPUSCULAR HEMOGLOBIN 31.9 pg (31.6-35.5); MEAN CORPUSCULAR HGB CONC 33.7 g/dL (31.6-35.5); MEAN CORPUSCULAR VOLUME 94.6 fL (81.4-99.0); RED BLOOD CELL COUNT 4.26 M/uL (3.77-5.24); WHITE BLOOD CELL COUNT,WBC 5.3 K/uL (3.2-11.0)
[2024-02-22 06:05] LABS: A/G RATIO 0.9 (1.2-2.2); ALANINE AMINOTRANSFERASE,ALT 35 U/L (12-78); ALKALINE PHOSPHATASE 97 U/L (46-116); ASPARTATE AMNIOTRANSFERASE,AST 33 U/L (15-37); BILIRUBIN TOTAL 0.5 mg/dL (0.2-1.0); BLOOD UREA NITROGEN,BUN 12 mg/dL (7-18); C-REACTIVE PROTEIN 1.83 mg/dL (<0.50); CALCIUM 8.9 mg/dL (8.5-10.1); CARBON DIOXIDE,CO2 25 mmol/L (21-32); CHLORIDE,CL 105 mmol/L (100-108); CREATININE 0.5 mg/dL (0.6-1.0); EST CRCL DRUG DOSING (CG) 86.58 mL/min; ESTIMATED GFR 101 mL/min (>60); GLUCOSE RANDOM 98 mg/dL (74-106); POTASSIUM,K 4.2 mmol/L (3.6-5.2); PROTEIN TOTAL,TP 6.2 g/dL (6.4-8.2); SODIUM,NA 139 mmol/L (140-148)
[2024-02-22 06:11] LABS: ANION GAP 13.2 mmol/L (5.0-14.0)
[2024-02-22] MEDS: oxyCODONE 5 MG Tab PO PRN (12:46)
[2024-02-22] MEDS: risperiDONE 1 MG Tab PO ONE (17:32)
[2024-02-22] MEDS: LORazepam 1 MG Tab PO PRN (19:52)
[2024-02-23] MEDS: Sodium Chloride 0.9% 500 ML IV SCH (10:43)
[2024-02-23] MEDS: Divalproex Sodium Delayed-Release 125 MG Cap.Sprink PO SCH (11:44)
[2024-02-23] MEDS ORDERED: risperiDONE 1 MG Tab PO ONE (17:15)
[2024-02-23] MEDS: QUEtiapine 25 MG Tab PO PRN (18:43)
[2024-02-23] MEDS: oxyCODONE 5 MG Tab PO PRN (21:27)
[2024-02-24 05:37] LABS: HEMOGLOBIN 11.7 g/dL (11.2-15.5); MEAN CORPUSCULAR HEMOGLOBIN 31.8 pg (31.6-35.5); MEAN CORPUSCULAR HGB CONC 33.4 g/dL (31.6-35.5); MEAN CORPUSCULAR VOLUME 95.1 fL (81.4-99.0); RED BLOOD CELL COUNT 3.68 M/uL (3.77-5.24); WHITE BLOOD CELL COUNT,WBC 4.1 K/uL (3.2-11.0)
[2024-02-24 05:56] LABS: A/G RATIO 0.9 (1.2-2.2); ALANINE AMINOTRANSFERASE,ALT 26 U/L (12-78); ALBUMIN 2.6 g/dL (3.4-5.0); ALKALINE PHOSPHATASE 86 U/L (46-116); ANION GAP 5.6 mmol/L (5.0-14.0); ASPARTATE AMNIOTRANSFERASE,AST 16 U/L (15-37); BILIRUBIN TOTAL 0.3 mg/dL (0.2-1.0); BLOOD UREA NITROGEN,BUN 8 mg/dL (7-18); C-REACTIVE PROTEIN 0.68 mg/dL (<0.50); CALCIUM 8.7 mg/dL (8.5-10.1); CARBON DIOXIDE,CO2 30 mmol/L (21-32); CHLORIDE,CL 108 mmol/L (100-108); CREATININE 0.4 mg/dL (0.6-1.0); EST CRCL DRUG DOSING (CG) 108.22 mL/min; ESTIMATED GFR 106 mL/min (>60); GLUCOSE RANDOM 85 mg/dL (74-106); MAGNESIUM 1.5 mg/dL (1.8-2.4); POTASSIUM,K 3.7 mmol/L (3.6-5.2); PROTEIN TOTAL,TP 5.4 g/dL (6.4-8.2); SODIUM,NA 144 mmol/L (140-148)
[2024-02-24] MEDS: Magnesium Oxide 400 MG Tab PO SCH (10:27)
[2024-02-24] MEDS: Magnesium Sulfate/Water Premix 2 GM in Premix Bag 1 BAG IV SCH (10:38)
[2024-02-25] MEDS: QUEtiapine 25 MG Tab PO SCH (10:49)
[2024-02-28 08:42] VITALS: BP 123/80; PULSE 94
== END 2024-02-28 10:04 | DRG 91 ==
LOC: JP.ED 19:50 → MERGE 23:03 → JP.MS 23:03 → JP.ICU 02-11 09:26 → JP.MS 02-22 10:06
PROVIDERS: ADMIT Internal Medicine; ATTEND Hospitalist
PROC: 4A033R1 Measurement of Arterial Saturation, Peripheral, Percutaneous Approach (ICD-10-PCS; 2024-02-12)
PROC: 009U3ZX Drainage of Spinal Canal, Percutaneous Approach, Diagnostic (ICD-10-PCS; principal; 2024-02-13)
DX: G89.29 Other chronic pain (principal); R41.0 Disorientation, unspecified; G92.8 Other toxic encephalopathy; J69.0 Pneumonitis due to inhalation of food and vomit; J96.01 Acute respiratory failure with hypoxia; F05 Delirium due to known physiological condition; E86.0 Dehydration; M19.90 Unspecified osteoarthritis, unspecified site; E87.6 Hypokalemia; E03.9 Hypothyroidism, unspecified; G89.4 Chronic pain syndrome; R33.9 Retention of urine, unspecified; N32.89 Other specified disorders of bladder; R33.8 Other retention of urine; S32.592D Other specified fracture of left pubis, subsequent encounter for fracture with routine healing; Z88.0 Allergy status to penicillin; Z79.891 Long term (current) use of opiate analgesic; Z79.82 Long term (current) use of aspirin; Z79.899 Other long term (current) drug therapy; Z87.81 Personal history of (healed) traumatic fracture; Z90.89 Acquired absence of other organs; Z98.84 Bariatric surgery status; X58.XXXD Exposure to other specified factors, subsequent encounter
CPT/HCPCS: 36415; 70450; 71045; 80053; 80305; 80307; 81001; 82607; 83735; 84443; 85025; 99285 ×2; A9270 ×2; J7030; 36600; 51702; 51798; 62270; 70551; 80048; 82040; 82042; 82140; 82550; 82784; 82803; 82945; 82947; 83605; 84132; 84145; 84157; 84484; 85027; 86140; 86788; 86789; 87070; 87102; 87205; 87327; 87498; 89050; 94640; 96125-GO; 97162-GP; 97165-GO; 97530-GP; 99223; 99232; 99233; 99239; J0713; J1171; J1200; J1630; J1885; J2060; J2405; J2470; J2560; J2919; J3411; J3475; J3480; J3490; J7040